=== PATIENT | female | born 1970 | race Caucasian/White ===

== ENCOUNTER 2016-02-28 11:22 | Emergency (ER) | payer MEDICAID ==
--- NOTE | 2016-02-28 11:33 | ER Document Report ---
ED Medical Screen (RME) - General Stated Complaint: LEFT SIDE PAIN Time seen by provider: 11:31 Mode of Arrival: Ambulatory Information source: Patient Notes: 45-year-old female with bilateral heavily laden kidneys with stones has bilateral drainage tubes for 90 days that were placed at [facility]. She has increased pain with leakage in the left tube. No fever or chills. No nausea or vomiting.. She can't stand the pain anymore and she also states that she needs her drainage bags replaced. TRAVEL OUTSIDE OF THE [place] IN LAST 30 DAYS: No - Related Data Allergies/Adverse Reactions: prochlorperazine edisylate [From Compazine] Allergy (Verified 02/23/16 17:42) prochlorperazine maleate [From Compazine] Allergy (Verified 02/23/16 17:42) tramadol Allergy (Verified 02/23/16 17:42) Past Medical History Pulmonary Medical History: Reports: Hx Asthma Neurological Medical History: Reports: Hx Migraine Endocrine Medical History: Reports: Hx Hypothyroidism Renal/ Medical History: Reports: Hx Kidney Stones GI Medical History: Reports: Hx Hepatitis - Hep C Musculoskeltal Medical History: Reports Hx Fibromyalgia Psychiatric Medical History: Reports: Hx Anxiety, Hx Attention Deficit Hyperactivity Disorder, Hx Bipolar Disorder Infectious Medical History: Reports: Hx Hepatitis - Hep C Past Surgical History: Reports: Hx Kidney (Renal Surgery) - stones, Hx Thyroid Surgery - partial thyroidectomy - Immunizations Hx Diphtheria, Pertussis, Tetanus Vaccination: Yes
[2016-02-28 12:34] LABS: AMORPHOUS SEDIMENT,URINE TRACE /HPF; APPEARANCE,URINE CLOUDY; BILIRUBIN,URINE NEGATIVE (NEGATIVE); GLUCOSE, URINE NEGATIVE (NEGATIVE); KETONES,URINE NEGATIVE (NEGATIVE); LEUKOCYTE ESTERASE,URINE LARGE (NEGATIVE); NITRITE,URINE NEGATIVE (NEGATIVE); PROTEIN,URINE 30 mg/dL (NEGATIVE); URINE SPECIFIC GRAVITY 1.006; UROBILINOGEN,URINE NEGATIVE mg/dL (<2.0)
[2016-02-28 13:31] LABS: ABSOLUTE BASOPHILS # (AUTO) 0.1 10^3/uL (0.0-0.2); ABSOLUTE EOSINOPHILS # (AUTO) 0.2 10^3/uL (0.0-0.6); ABSOLUTE LYMPHOCYTES (AUTO) 2.5 10^3/uL (0.5-4.7); ABSOLUTE MONOCYTES (AUTO) 0.4 10^3/uL (0.1-1.4); BASOPHILS % (AUTO) 0.8 % (0-2); EOSINOPHILS % (AUTO) 2.6 % (0-6); HEMATOCRIT 41.1 % (36.0-47.0); HEMOGLOBIN 14.1 g/dL (12.0-15.5); HGB HCT DIFFERENCE 1.2; LYMPHOCYTES % (AUTO) 27.4 % (13-45); MEAN CORPUSCULAR HEMOGLOBIN 29.6 pg (27.0-33.4); MEAN CORPUSCULAR HGB CONC 34.3 g/dL (32.0-36.0); MEAN CORPUSCULAR VOLUME 86 fl (80-97); MONOCYTES % (AUTO) 4.1 % (3-13); RED BLOOD COUNT 4.76 10^6/uL (3.72-5.28); RED CELL DISTRIBUTION WIDTH 14.5 % (11.5-14.0); SEGMENTED NEUTROPHILS % (AUTO) 65.1 % (42-78); WHITE BLOOD COUNT 9.3 10^3/uL (4.0-10.5)
--- NOTE | 2016-02-28 13:35 | ER Document Report ---
ED General - General Chief Complaint: Flank Pain Stated Complaint: LEFT SIDE PAIN Time seen by provider: 13:34 Mode of Arrival: Ambulatory Notes: This is a 45-year-old female that presents today with back pain at the insertion site of the urostomy tubes. She denies any flank pain nausea vomiting fever or chills. She states that Dr. Engle in [place] placed the tubes and stents approximately 90 days ago. She had an appointment to remove the tubes on February 17, however she missed her appointment. She is in the process of rescheduling. She states that she has 18 stones in the left ureter and 2 stones in the right. She also states that she's been having dysuria since placement of the tubes. She was placed on Bactrim month ago, however she states that she has not been taking it since lab called her and stated that her infection was resistant to Bactrim. TRAVEL OUTSIDE OF THE [place] IN LAST 30 DAYS: No - Related Data Allergies/Adverse Reactions: prochlorperazine edisylate [From Compazine] Allergy (Severe, Verified 02/28/16 11:47) Swelling of Throat acetaminophen [From Vicodin] Allergy (Verified 02/28/16 11:46) hydrocodone [From Vicodin] Allergy (Verified 02/28/16 11:46) ketorolac [From Toradol] Allergy (Verified 02/28/16 15:49) prochlorperazine maleate [From Compazine] Allergy (Verified 02/23/16 17:42) tramadol Allergy (Verified 02/23/16 17:42) Past Medical History - General Information source: Patient - Social History Smoking Status: Current Every Day Smoker Family History: Reviewed & Not Pertinent Pulmonary Medical History: Reports: Hx Asthma Neurological Medical History: Reports: Hx Migraine Endocrine Medical History: Reports: Hx Hypothyroidism Renal/ Medical History: Reports: Hx Kidney Stones GI Medical History: Reports: Hx Hepatitis - Hep C Musculoskeltal Medical History: Reports Hx Fibromyalgia Psychiatric Medical History: Reports: Hx Anxiety, Hx Attention Deficit Hyperactivity Disorder, Hx Bipolar Disorder Infectious Medical History: Reports: Hx Hepatitis - Hep C Past Surgical History: Reports: Hx Kidney (Renal Surgery) - stones, Hx Thyroid Surgery - partial thyroidectomy - Immunizations Hx Diphtheria, Pertussis, Tetanus Vaccination: Yes Review of Systems - Review of Systems Constitutional: denies: Fever EENT: denies: Blurred vision Cardiovascular: denies: Chest pain Respiratory: denies: Cough, Short of breath Gastrointestinal: denies: Abdominal pain Genitourinary: See HPI Female Genitourinary: See HPI Musculoskeletal: Back pain - pain only at the site of the drainage tubes. Skin: No symptoms reported Physical Exam - General General appearance: Appears well - HEENT Head: Normocephalic Eyes: Normal Conjunctiva: Normal - Respiratory Respiratory status: No respiratory distress. No: Retractions Breath sounds: Normal. No: Rales, Rhonchi, Stridor, Wheezing - Cardiovascular Rhythm: Regular Heart sounds: Normal auscultation - Abdominal Inspection: Normal Distension: No distension Bowel sounds: Normal - Back Back: Normal. No: CVA tenderness - Extremities General upper extremity: Normal inspection General lower extremity: Normal inspection - Neurological Orientation: AAOx4 - Psychological Associated symptoms: Normal affect - Skin Skin Temperature: Warm Skin Moisture: Dry Skin Color: Normal Course - Re-evaluation Re-evalutation: 02/28/16 13:42 Patient states that she woke up this morning at 0930 and noticed that her back was wet. She believes that her tubes were leaking. I examined the urostomy tubes and I did not find any leakage or blockage. Suture site does not appear infected. Skin is normal color. Urinary bladder bag has yellow urine. No gross blood noted. - Laboratory Result Diagrams: 02/28/16 13:00 02/28/16 13:00 Laboratory results interpreted by me: 02/28/16 02/28/16 02/28/16 12:05 13:00 13:00 RDW 14.5 H AST 13 L Urine Protein 30 H Urine Blood MODERATE H Ur Leukocyte Esterase LARGE H Discharge - Discharge Clinical Impression: UTI (urinary tract infection) Qualifiers: Urinary tract infection type: site unspecified Hematuria presence: without hematuria Qualified Code(s): N39.0 - Urinary tract infection, site not specified Condition: Stable Disposition: HOME, SELF-CARE Additional Instructions: Return to the emergency department if symptoms worsen. Follow-up with primary care physician. Prescriptions: Amox Tr/Potassium Clavulanate [Augmentin 500-125 Tablet] 1 each PO BID #14 tablet Oxycodone HCl/Acetaminophen [Percocet 5-325 mg Tablet] 1 - 2 tab PO Q4H PRN #6 tablet PRN Reason: Referrals: HAROON CHERRY MD [Primary Care Provider] - Follow up as needed
[2016-02-28] MEDS ORDERED: KETOROLAC TROMETHAMINE 60 MG/2 ML SDV IM ONE (13:46)
[2016-02-28 13:47] LABS: ALANINE AMINOTRANSFERASE 22 U/L (9-52); ALKALINE PHOSPHATASE 85 U/L (38-126); ANION GAP 11 (5-19); ASPARTATE AMINO TRANSFERASE 13 U/L (14-36); BILIRUBIN,TOTAL 0.3 mg/dL (0.2-1.3); BLOOD UREA NITROGEN 11 mg/dL (7-20); CALCIUM 9.5 mg/dL (8.4-10.2); CARBON DIOXIDE 25 mmol/L (22-30); CHLORIDE 105 mmol/L (98-107); CREATININE RESULT 0.52 mg/dL (0.52-1.25); GLUCOSE 110 mg/dL (75-110); POTASSIUM 4.1 mmol/L (3.6-5.0); SODIUM 140.7 mmol/L (137-145)
[2016-02-28 22:08] VITALS: BP 126/71
== END 2016-02-28 17:26 | disposition home or self-care (01) ==
LOC: ER 11:22
DX: N39.0 Urinary tract infection, site not specified (principal); R10.9 Unspecified abdominal pain; R05 Cough; Z93.6 Other artificial openings of urinary tract status; R06.02 Shortness of breath; Z88.6 Allergy status to analgesic agent; J45.909 Unspecified asthma, uncomplicated; Z87.442 Personal history of urinary calculi; Z86.19 Personal history of other infectious and parasitic diseases
CPT/HCPCS: 36415; 76770; 80053; 81001; 85025; 87086; 87088; 87186; 99284

== ENCOUNTER 2016-03-08 10:51 | Emergency (ER) | payer MEDICAID ==
--- NOTE | 2016-03-08 11:12 | ER Document Report ---
ED Medical Screen (RME) - General Stated Complaint: NEPHROSTOMY TUBE COMPLICATION Time seen by provider: 11:11 Mode of Arrival: Ambulatory Information source: Patient Notes: 45-year-old female with nephrostomy tubes placed by a drier transfer car operator at [facility] in [place]. She was seen in the emergency department because she had a sensation that the tubes were leaking bile upon physical exam they said it was not leaking but she is now soaking through Edi for a week. TRAVEL OUTSIDE OF THE [place] IN LAST 30 DAYS: No - Related Data Allergies/Adverse Reactions: prochlorperazine edisylate [From Compazine] Allergy (Severe, Verified 03/08/16 11:09) Swelling of Throat acetaminophen [From Vicodin] Allergy (Verified 03/08/16 11:09) hydrocodone [From Vicodin] Allergy (Verified 03/08/16 11:09) ketorolac [From Toradol] Allergy (Verified 03/08/16 11:09) prochlorperazine maleate [From Compazine] Allergy (Verified 03/08/16 11:09) tramadol Allergy (Verified 03/08/16 11:09) Past Medical History Pulmonary Medical History: Reports: Hx Asthma Neurological Medical History: Reports: Hx Migraine Endocrine Medical History: Reports: Hx Hypothyroidism Renal/ Medical History: Reports: Hx Kidney Stones GI Medical History: Reports: Hx Hepatitis - Hep C Musculoskeltal Medical History: Reports Hx Fibromyalgia Psychiatric Medical History: Reports: Hx Anxiety, Hx Attention Deficit Hyperactivity Disorder, Hx Bipolar Disorder Infectious Medical History: Reports: Hx Hepatitis - Hep C Past Surgical History: Reports: Hx Kidney (Renal Surgery) - stones, Hx Thyroid Surgery - partial thyroidectomy - Immunizations Hx Diphtheria, Pertussis, Tetanus Vaccination: Yes Physical Exam - Vital signs Vitals: Temp Pulse Resp BP Pulse Ox 97.4 F 90 18 118/64 99 03/08/16 10:58 03/08/16 10:58 03/08/16 10:58 03/08/16 10:58 03/08/16 10:58 Course - Vital Signs Vital signs: Temp Pulse Resp BP Pulse Ox 97.4 F 90 18 118/64 99 03/08/16 10:58 03/08/16 10:58 03/08/16 10:58 03/08/16 10:58 03/08/16 10:58
--- NOTE | 2016-03-08 11:55 | ER Document Report ---
ED GI/ <SYED NEGRON - Last Filed: 03/08/16 12:50> - General Mode of Arrival: Ambulatory Information source: Patient TRAVEL OUTSIDE OF THE [place] IN LAST 30 DAYS: No <SOPHIATERESA - Last Filed: 03/08/16 14:49> - General Chief Complaint: Other Stated Complaint: NEPHROSTOMY TUBE COMPLICATION Notes: Patient is a 45-year-old female that presents to the emergency department today with complaints of a leaking nephrostomy tube. Patient has 2 nephrostomy tubes in her left kidney. Patient was seen 1 week ago for similar complaint. At that time the patient stated that on 02/18/2016 she was scheduled to have his nephrostomy tubes taken out changed however she missed her appointment. Patient has not followed up since then. Patient states she noticed "leaking" again one week ago. Patient denies any fevers. (TERESA CORTES) - Related Data Allergies/Adverse Reactions: prochlorperazine edisylate [From Compazine] Allergy (Severe, Verified 03/08/16 11:09) Swelling of Throat acetaminophen [From Vicodin] Allergy (Verified 03/08/16 11:09) hydrocodone [From Vicodin] Allergy (Verified 03/08/16 11:09) ketorolac [From Toradol] Allergy (Verified 03/08/16 11:09) prochlorperazine maleate [From Compazine] Allergy (Verified 03/08/16 11:09) tramadol Allergy (Verified 03/08/16 11:09) Past Medical History - General Information source: Patient - Social History Smoking Status: Current Every Day Smoker Cigarette use (# per day): Yes Frequency of alcohol use: None Drug Abuse: None Lives with: Family Family History: Reviewed & Not Pertinent Patient has suicidal ideation: No Patient has homicidal ideation: No Pulmonary Medical History: Reports: Hx Asthma Neurological Medical History: Reports: Hx Migraine Endocrine Medical History: Reports: Hx Hypothyroidism Renal/ Medical History: Reports: Hx Kidney Stones GI Medical History: Reports: Hx Hepatitis - Hep C Musculoskeltal Medical History: Reports Hx Fibromyalgia Psychiatric Medical History: Reports: Hx Anxiety, Hx Attention Deficit Hyperactivity Disorder, Hx Bipolar Disorder Infectious Medical History: Reports: Hx Hepatitis - Hep C Past Surgical History: Reports: Hx Kidney (Renal Surgery) - stones, Hx Thyroid Surgery - partial thyroidectomy - Immunizations Hx Diphtheria, Pertussis, Tetanus Vaccination: Yes <TERESA CORTES - Last Filed: 03/08/16 14:49> Review of Systems - Review of Systems Constitutional: denies: Fever EENT: No symptoms reported Cardiovascular: No symptoms reported Respiratory: No symptoms reported Gastrointestinal: No symptoms reported Genitourinary: See HPI, Other - Nephrostomy tube leaking Female Genitourinary: No symptoms reported Musculoskeletal: No symptoms reported Skin: No symptoms reported Hematologic/Lymphatic: No symptoms reported Neurological/Psychological: No symptoms reported -: Yes All other systems reviewed and negative <TERESA CORTES - Last Filed: 03/08/16 14:49> Physical Exam - Back Back: Other - Left flank has 2 nephrostomy tubes. The upper to has some of the drainage ports projected beyond the skin and are draining urine.. No: Normal <SYED NEGRON - Last Filed: 03/08/16 12:50> - General General appearance: Appears well, Alert In distress: None - HEENT Head: Normocephalic, Atraumatic Eyes: Normal Extraocular movements intact: Yes - Respiratory Respiratory status: No respiratory distress - Cardiovascular Rhythm: Regular Heart sounds: Normal auscultation Murmur: No - Abdominal Inspection: Normal Distension: No distension Tenderness: Nontender - Back Back: Other - Extremities General upper extremity: Normal inspection, Nontender. No: Edema General lower extremity: Normal inspection, Nontender. No: Edema - Neurological Neuro grossly intact: Yes Cognition: Normal Speech: Normal - Psychological Associated symptoms: Normal affect, Normal mood - Skin Skin Temperature: Warm Skin Moisture: Dry Skin Color: Normal <TERESA CORTES - Last Filed: 03/08/16 14:49> - Vital signs Vitals: Temp Pulse Resp BP Pulse Ox 97.4 F 90 18 118/64 99 03/08/16 10:58 03/08/16 10:58 03/08/16 10:58 03/08/16 10:58 03/08/16 10:58 (SYED NEGRON) (TERESA CORTES) Course - Consults Dr. Villasenor Time consulted: 12:05 Consulted provider: other - Dr. Villasenor is the urology director of front office for Dr. Engle in [place], [place]. He recommends I cut the nephrostomy tube and remove it, as the 2 intrarenal drainage ports have already come out beyond the skin. <SYED NEGRON - Last Filed: 03/08/16 12:50> <TERESA CORTES - Last Filed: 03/08/16 14:49> - Re-evaluation Re-evalutation: 03/08/16 12:51 Proceedure: The sutures holding the tube work cut and removed. The area was cleaned and prepped with alcohol wipe. The nephrostomy tube was cut. The thread loop was pulled out, then the nephrostomy tube was removed. There was a large amount of concretions on the end of the tube. There was no immediate urine drainage from the site, a sterile bandage was placed. (SYED NEGRON) - Vital Signs Vital signs: Temp Pulse Resp BP Pulse Ox 97.8 F 77 20 119/40 L 98 03/08/16 13:02 03/08/16 13:02 03/08/16 13:02 03/08/16 13:02 03/08/16 13:02 (SYED NEGRON) (TERESA CORTES) Scribe Documentation <SYED NEGRON - Last Filed: 03/08/16 12:50> - Scribe acting as scribe for :: Rudy <TERESA CORTES - Last Filed: 03/08/16 14:49> - Scribe Written by Scribe:: ARA MOTA 03/08/16 [id number] (TERESA CORTES)
[2016-03-08 13:03] VITALS: BP 119/40
== END 2016-03-08 13:02 | disposition home or self-care (01) ==
LOC: ER 10:51
DX: N99.528 Other complication of incontinent external stoma of urinary tract (principal); F17.210 Nicotine dependence, cigarettes, uncomplicated; J45.909 Unspecified asthma, uncomplicated; Z88.1 Allergy status to other antibiotic agents; Z88.5 Allergy status to narcotic agent; Z88.8 Allergy status to other drugs, medicaments and biological substances; Z87.442 Personal history of urinary calculi
CPT/HCPCS: 99283

== ENCOUNTER 2016-03-17 10:45 | Emergency (ER) | payer MEDICAID ==
--- NOTE | 2016-03-17 10:56 | ER Document Report ---
ED Medical Screen (RME) - General Stated Complaint: LEFT FLANK PAIN Time seen by provider: 10:54 Mode of Arrival: Ambulatory Information source: Patient Notes: 45-year-old female presents to ED for left flank pain with a history of kidney stones. She has asked dental stents at this time. TRAVEL OUTSIDE OF THE [place] IN LAST 30 DAYS: No - HPI Onset: Yesterday Onset/Duration: Gradual Quality of pain: Achy, Sharp, Throbbing Severity: Severe Pain Level: 5 Associated Symptoms: Nausea. denies: Vomiting Exacerbated by: Other Relieved by: Denies Similar symptoms previously: Yes Recently seen / treated by doctor: Yes - Related Data Smoking: Less than 1 pack/day Frequency of alcohol use: None Drug Abuse: None Allergies/Adverse Reactions: prochlorperazine edisylate [From Compazine] Allergy (Severe, Verified 03/08/16 11:09) Swelling of Throat acetaminophen [From Vicodin] Allergy (Verified 03/08/16 11:09) hydrocodone [From Vicodin] Allergy (Verified 03/08/16 11:09) ketorolac [From Toradol] Allergy (Verified 03/08/16 11:09) prochlorperazine maleate [From Compazine] Allergy (Verified 03/08/16 11:09) tramadol Allergy (Verified 03/08/16 11:09) Past Medical History Pulmonary Medical History: Reports: Hx Asthma Neurological Medical History: Reports: Hx Migraine Endocrine Medical History: Reports: Hx Hypothyroidism Renal/ Medical History: Reports: Hx Kidney Stones GI Medical History: Reports: Hx Hepatitis - Hep C Musculoskeltal Medical History: Reports Hx Fibromyalgia Psychiatric Medical History: Reports: Hx Anxiety, Hx Attention Deficit Hyperactivity Disorder, Hx Bipolar Disorder Infectious Medical History: Reports: Hx Hepatitis - Hep C Past Surgical History: Reports: Hx Kidney (Renal Surgery) - stones, Hx Thyroid Surgery - partial thyroidectomy - Immunizations Hx Diphtheria, Pertussis, Tetanus Vaccination: Yes Physical Exam - Vital signs Vitals: Temp Pulse Resp BP Pulse Ox 98.4 F 88 16 106/61 99 03/17/16 10:52 03/17/16 10:52 03/17/16 10:52 03/17/16 10:52 03/17/16 10:52 Course - Vital Signs Vital signs: Temp Pulse Resp BP Pulse Ox 98.4 F 88 16 106/61 99 03/17/16 10:52 03/17/16 10:52 03/17/16 10:52 03/17/16 10:52 03/17/16 10:52
[2016-03-17 11:33] LABS: APPEARANCE,URINE SLIGHTLY-CLOUDY; BILIRUBIN,URINE NEGATIVE (NEGATIVE); GLUCOSE, URINE NEGATIVE (NEGATIVE); KETONES,URINE NEGATIVE (NEGATIVE); LEUKOCYTE ESTERASE,URINE LARGE (NEGATIVE); NITRITE,URINE NEGATIVE (NEGATIVE); PROTEIN,URINE NEGATIVE (NEGATIVE); URINE SPECIFIC GRAVITY 1.002; UROBILINOGEN,URINE NEGATIVE mg/dL (<2.0)
[2016-03-17] MEDS ORDERED: OXYCODONE-ACETAMINOPHEN 5-325 MG TABLET PO ONE (11:52)
--- NOTE | 2016-03-17 11:57 | ER Document Report ---
ED GI/ - General Chief Complaint: Flank Pain Stated Complaint: LEFT FLANK PAIN Mode of Arrival: Ambulatory Notes: She is a 45-year-old female presents emergency Department complaining of left flank pain. Patient has a known history of renal stones, states she has 18 in her left kidney that has required nephrostomy tube placement and she has multiple in her right. She was recently seen in our emergency department for nephrostomy tube issues and one was removed. Her remaining 1 has been functioning without any problems. She comes in for pain management. Past medical history significant for kidney stones otherwise healthy 45-year- old female. Urologist is Dr. Nataly Smith in [place] she's been in contact with since her last visit with us for evaluation and possible repeat surgery. Otherwise she is admitting to urinary urgency but denies pyuria, hematuria, frequency. TRAVEL OUTSIDE OF THE [place] IN LAST 30 DAYS: No - Related Data Allergies/Adverse Reactions: prochlorperazine edisylate [From Compazine] Allergy (Severe, Verified 03/17/16 10:54) Swelling of Throat acetaminophen [From Vicodin] Allergy (Verified 03/17/16 10:54) hydrocodone [From Vicodin] Allergy (Verified 03/17/16 10:54) ketorolac [From Toradol] Allergy (Verified 03/17/16 10:54) prochlorperazine maleate [From Compazine] Allergy (Verified 03/17/16 10:54) tramadol Allergy (Verified 03/17/16 10:54) Past Medical History - General Information source: Patient - Social History Smoking Status: Current Every Day Smoker Chew tobacco use (# tins/day): Yes Smoking Education Provided: Yes - Smoking cessation education-4 minutes Frequency of alcohol use: None Drug Abuse: None Family History: Reviewed & Not Pertinent Patient has suicidal ideation: No Patient has homicidal ideation: No Pulmonary Medical History: Reports: Hx Asthma Neurological Medical History: Reports: Hx Migraine Endocrine Medical History: Reports: Hx Hypothyroidism Renal/ Medical History: Reports: Hx Kidney Stones. Denies: Hx Peritoneal Dialysis GI Medical History: Reports: Hx Hepatitis - Hep C Musculoskeltal Medical History: Reports Hx Fibromyalgia Psychiatric Medical History: Reports: Hx Anxiety, Hx Attention Deficit Hyperactivity Disorder, Hx Bipolar Disorder Infectious Medical History: Reports: Hx Hepatitis - Hep C Past Surgical History: Reports: Hx Kidney (Renal Surgery) - stones, Hx Thyroid Surgery - partial thyroidectomy - Immunizations Hx Diphtheria, Pertussis, Tetanus Vaccination: Yes Review of Systems - Review of Systems Constitutional: No symptoms reported EENT: No symptoms reported Cardiovascular: No symptoms reported Respiratory: No symptoms reported Gastrointestinal: No symptoms reported Genitourinary: See HPI Female Genitourinary: No symptoms reported Musculoskeletal: See HPI Skin: No symptoms reported Hematologic/Lymphatic: No symptoms reported Neurological/Psychological: No symptoms reported Physical Exam - Vital signs Vitals: Temp Pulse Resp BP Pulse Ox 98.4 F 88 16 106/61 99 03/17/16 10:52 03/17/16 10:52 03/17/16 10:52 03/17/16 10:52 03/17/16 10:52 - Notes Notes: PHYSICAL EXAM GENERAL: Alert, interacts well. HEAD: Normocephalic, atraumatic. EYES: Pupils equal, round, and reactive to light. Extraocular movements intact. ENT: Oral mucosa moist, tongue midline. NECK: Full range of motion. Supple. Trachea midline. LUNGS: Clear to auscultation bilaterally, no wheezes, rales, or rhonchi. No respiratory distress. HEART: Regular rate and rhythm. No murmurs, gallops, or rubs. ABDOMEN: Soft, nondistended, nontender. No guarding, rebound, or rigidity.. Bowel sounds present in all 4 quadrants. BACK: previous nephrosotmy site is healed well without tenderness. no evidence of inflammation or erythema. Inferior to that is her existing nephrostomy tube that is opened air without any drainage or discharge. Her leg bag has clear yellow urine with no evidence of clouding or blood. EXTREMITIES: Moves all 4 extremities spontaneously. No edema, radial and dorsalis pedis pulses 2/4 bilaterally. No cyanosis. NEUROLOGICAL: Alert and oriented x3. Normal speech. PSYCH: Normal affect, normal mood. SKIN: Warm, dry, normal turgor. No rashes or lesions noted. Course - Re-evaluation Re-evalutation: 03/17/16 13:53 Patient is a 45-year-old female presents emergency Department complaining of left flank pain from her kidney stones. Patient is yet to follow with urology, she states she is waiting for a phone call from their office. 03/17/16 14:58 No evidence of acute renal failure. Patient be discharged home with pain medication and encouraged to follow-up with urologist as soon as possible for her stones. - Vital Signs Vital signs: Temp Pulse Resp BP Pulse Ox 98.4 F 88 16 106/61 99 03/17/16 10:52 03/17/16 10:52 03/17/16 10:52 03/17/16 10:52 03/17/16 10:52 - Laboratory Result Diagrams: 03/17/16 13:20 03/17/16 13:20 Laboratory results interpreted by me: 03/17/16 03/17/16 11:22 13:20 WBC 11.0 H RDW 14.4 H Urine Blood MODERATE H Ur Leukocyte Esterase LARGE H Discharge - Discharge Clinical Impression: Kidney stones, Encounter for smoking cessation counseling Condition: Good Disposition: HOME, SELF-CARE Additional Instructions: KIDNEY STONE: You are passing or have passed a kidney stone. These stones are usually due to increased calcium or uric acid concentrations in your urine. Stones within the kidney itself are not painful. The pain occurs as the stone leaves the kidney to pass down the long tube, called the ureter, leading to the bladder. If the stone is small, it will usually pass by itself. Most patients can pass the stone at home. You will usually receive medications for pain, nausea or vomiting, and sometimes a medication to assist in passing the kidney stone. However, if the pain is very severe or if vomiting prevents you from taking oral pain medications, you may need to return for further treatment. Drink three or four quarts of fluids per day. You will be given pain medication (if needed) and urine strainers. Strain all your urine to see if the stone passes. If your doctor has asked you to bring the stone in for analysis, return with the stone once it has passed. Return if pain or vomiting become severe, if you develop a high fever, if you are unable to pass your urine, or if other unusual symptoms occur. PAIN MEDICATION INJECTION: You have received an injection of a pain medication. You should experience significant pain relief within 45 minutes. This drug is a narcotic - - it will impair your judgement, slow your reaction time and make you sleepy ( as well as relieve your pain). Narcotics also can cause nausea. You should not drive, work with machinery, or perform any task requiring mental alertness until all effects of the medication are gone -- six to eight hours. Do not take any alcohol, or sedatives, and do not take any other medication without checking with your physician. ANTINAUSEA MEDICATION: You have been given a medication to suppress nausea and vomiting. This type of medication can be given as a shot, pill, or suppository. It will usually last for many hours. Pills and shots usually last six to eight hours, suppositories last about 12 hours. For the typical illness, only one or two doses of the medication may be necessary. Mild lightheadedness may occur. This type of medicine can cause drowsiness. Do not drive or operate dangerous machinery while under its influence. Do not mix with alcohol. See your doctor at once if you have muscle spasms or tightness, or uncontrollable motions (particularly of the neck, mouth, or jaw). Persistent vomiting or severe lightheadedness should also be evaluated by the physician. ORAL NARCOTIC MEDICATION: You have been given a prescription for pain control. This medication is a narcotic. It's best taken with food, as nausea can result if taken on an empty stomach. Don't operate machinery or drive within six hours of taking this medication. Do not combine this medicine with alcohol, or with any medication which can cause sedation (such as cold tablets or sleeping pills) unless you get permission from the physician. Narcotics tend to cause constipation. If possible, drink plenty of fluids and eat a diet high in fiber and fruits. Please be aware that prescription narcotics also have the potential for abuse. People become addicted to these medications because of the general sense of wellbeing that they induce. This feeling along with a significant reduction in tension, anxiety, and aggression provides a stimulating seductive quality to these drugs. Once your pain is under control, we encourage you to discard your unused narcotics. FOLLOW-UP CARE: If you have been referred to a physician for follow-up care, call the physician s office for an appointment as you were instructed or within the next two days. If you experience worsening or a significant change in your symptoms, notify the physician immediately or return to the Emergency Department at any time for re-evaluation. Prescriptions: Oxycodone HCl/Acetaminophen [Percocet 5-325 mg Tablet] 1 - 2 tab PO Q4H PRN #25 tablet PRN Reason: Forms: Smoking Cessation Education Referrals: NATALY SMITH [ACTIVE STAFF] - Follow up in 1 week (Please call to schedule an appointment)
[2016-03-17] MEDS ORDERED: MORPHINE SULFATE 10 MG/ML INJ IM ONE (13:47)
[2016-03-17 13:54] LABS: HEMATOCRIT 44.5 % (36.0-47.0); HEMOGLOBIN 14.5 g/dL (12.0-15.5); MEAN CORPUSCULAR HEMOGLOBIN 28.9 pg (27.0-33.4); MEAN CORPUSCULAR HGB CONC 32.6 g/dL (32.0-36.0); MEAN CORPUSCULAR VOLUME 89 fl (80-97); RED BLOOD COUNT 5.02 10^6/uL (3.72-5.28); RED CELL DISTRIBUTION WIDTH 14.4 % (11.5-14.0)
[2016-03-17 14:09] LABS: ALBUMIN 4.4 g/dL (3.5-5.0); ANION GAP 12 (5-19); BLOOD UREA NITROGEN 10 mg/dL (7-20); CALCIUM 9.6 mg/dL (8.4-10.2); CARBON DIOXIDE 29 mmol/L (22-30); CHLORIDE 103 mmol/L (98-107); CREATININE RESULT 0.56 mg/dL (0.52-1.25); GLUCOSE 91 mg/dL (75-110); PHOSPHORUS 3.5 mg/dL (2.5-4.5); POTASSIUM 4.2 mmol/L (3.6-5.0); SODIUM 144.1 mmol/L (137-145)
[2016-03-17 14:39] LABS: ANISOCYTOSIS SLIGHT; BASOPHILS % (MANUAL) 0 % (0-2); EOSINOPHILS % (MANUAL) 1 % (0-6); LYMPHOCYTES % (MANUAL) 37 % (13-45); PLATELET CLUMPS PRESENT; POLYCHROMASIA SLIGHT; TOTAL CELLS COUNTED 100; TOXIC GRANULATION SLIGHT
[2016-03-17 15:29] VITALS: BP 111/78
== END 2016-03-17 15:20 | disposition home or self-care (01) ==
LOC: ER 10:45
DX: N20.0 Calculus of kidney (principal); R10.9 Unspecified abdominal pain; F17.210 Nicotine dependence, cigarettes, uncomplicated
CPT/HCPCS: 99284; 96372; 80069; 36415; 85025; 81025; 81001; J2270

== ENCOUNTER 2016-04-01 19:37 | Inpatient (IN) | payer MEDICAID ==
[2016-04-01] MEDS ORDERED: ONDANSETRON 4 MG TAB.RAPDIS PO ONE (19:53)
[2016-04-01] MEDS ORDERED: OXYCODONE-ACETAMINOPHEN 5-325 MG TABLET PO ONE (19:53)
--- NOTE | 2016-04-01 19:55 | ER Document Report ---
ED Medical Screen (RME) - General Stated Complaint: FLANK PAIN Notes: Since a 45-year-old female who is known to have kidney stones on the left side she states she is about 18 in the left kidney she also has kidney stones on her right kidney about 2. Patient is due to follow up with her urologist surgery sometime soon. I have greeted and performed a rapid initial assessment of this patient. A comprehensive ED assessment and evaluation of the patient, analysis of test results and completion of the medical decision making process will be conducted by additional ED providers. TRAVEL OUTSIDE OF THE [place] IN LAST 30 DAYS: No - Related Data Allergies/Adverse Reactions: prochlorperazine edisylate [From Compazine] Allergy (Severe, Verified 03/17/16 10:54) Swelling of Throat acetaminophen [From Vicodin] Allergy (Verified 03/17/16 10:54) hydrocodone [From Vicodin] Allergy (Verified 03/17/16 10:54) ketorolac [From Toradol] Allergy (Verified 03/17/16 10:54) prochlorperazine maleate [From Compazine] Allergy (Verified 03/17/16 10:54) tramadol Allergy (Verified 03/17/16 10:54) Past Medical History Pulmonary Medical History: Reports: Hx Asthma Neurological Medical History: Reports: Hx Migraine Endocrine Medical History: Reports: Hx Hypothyroidism Renal/ Medical History: Reports: Hx Kidney Stones. Denies: Hx Peritoneal Dialysis GI Medical History: Reports: Hx Hepatitis - Hep C Musculoskeltal Medical History: Reports Hx Fibromyalgia Psychiatric Medical History: Reports: Hx Anxiety, Hx Attention Deficit Hyperactivity Disorder, Hx Bipolar Disorder Infectious Medical History: Reports: Hx Hepatitis - Hep C Past Surgical History: Reports: Hx Kidney (Renal Surgery) - stones, Hx Thyroid Surgery - partial thyroidectomy - Immunizations Hx Diphtheria, Pertussis, Tetanus Vaccination: Yes
[2016-04-01 20:36] LABS: ABSOLUTE BASOPHILS # (AUTO) 0.1 10^3/uL (0.0-0.2); ABSOLUTE LYMPHOCYTES (AUTO) 1.8 10^3/uL (0.5-4.7); ABSOLUTE MONOCYTES (AUTO) 1.1 10^3/uL (0.1-1.4); ABSOLUTE NEUT (AUTO) 16.5 10^3/uL (1.7-8.2); BASOPHILS % (AUTO) 0.3 % (0-2); EOSINOPHILS % (AUTO) 0.1 % (0-6); HEMATOCRIT 41.1 % (36.0-47.0); HEMOGLOBIN 13.8 g/dL (12.0-15.5); HGB HCT DIFFERENCE 0.3; LYMPHOCYTES % (AUTO) 9.3 % (13-45); MEAN CORPUSCULAR HEMOGLOBIN 28.9 pg (27.0-33.4); MEAN CORPUSCULAR HGB CONC 33.7 g/dL (32.0-36.0); MEAN CORPUSCULAR VOLUME 86 fl (80-97); MONOCYTES % (AUTO) 5.6 % (3-13); RED BLOOD COUNT 4.78 10^6/uL (3.72-5.28); RED CELL DISTRIBUTION WIDTH 13.4 % (11.5-14.0); SEGMENTED NEUTROPHILS % (AUTO) 84.7 % (42-78); WHITE BLOOD COUNT 19.5 10^3/uL (4.0-10.5)
[2016-04-01 21:03] LABS: ALANINE AMINOTRANSFERASE 9 U/L (9-52); ALBUMIN 4.5 g/dL (3.5-5.0); ALKALINE PHOSPHATASE 86 U/L (38-126); ANION GAP 12 (5-19); ASPARTATE AMINO TRANSFERASE 21 U/L (14-36); BILIRUBIN,TOTAL 0.9 mg/dL (0.2-1.3); BLOOD UREA NITROGEN 10 mg/dL (7-20); CALCIUM 9.8 mg/dL (8.4-10.2); CARBON DIOXIDE 25 mmol/L (22-30); CHLORIDE 96 mmol/L (98-107); CREATININE RESULT 0.61 mg/dL (0.52-1.25); GLUCOSE 113 mg/dL (75-110); SODIUM 133.3 mmol/L (137-145); TOTAL PROTEIN 8.2 g/dL (6.3-8.2)
[2016-04-01] MEDS ORDERED: NORMAL SALINE 1000 ML 1,000 ML IV ONE (23:44)
[2016-04-01] MEDS ORDERED: HYDROMORPHONE HCL INJ/PF 2 MG/ML AMPULE IV ONE (23:53)
[2016-04-02 00:44] LABS: AMORPHOUS SEDIMENT,URINE TRACE /HPF; APPEARANCE,URINE CLOUDY; BILIRUBIN,URINE NEGATIVE (NEGATIVE); GLUCOSE, URINE NEGATIVE (NEGATIVE); KETONES,URINE NEGATIVE (NEGATIVE); LEUKOCYTE ESTERASE,URINE LARGE (NEGATIVE); NITRITE,URINE NEGATIVE (NEGATIVE); PROTEIN,URINE 100 mg/dL (NEGATIVE); URINE SPECIFIC GRAVITY 1.005; UROBILINOGEN,URINE NEGATIVE mg/dL (<2.0)
[2016-04-02] MEDS ORDERED: CEFTRIAXONE INJ 1000 MG VIAL IV ONE (00:46)
[2016-04-02] MEDS ORDERED: HYDROMORPHONE HCL INJ/PF 2 MG/ML AMPULE IM ONE ×2 (01:21→02:48)
[2016-04-02] MEDS ORDERED: CEFTRIAXONE INJ 1000 MG VIAL IM ONE (01:22)
[2016-04-02] MEDS ORDERED: LIDOCAINE 1% INJ-PF (10 MG/ML) 30 ML SDV INFIL ONE (01:22)
[2016-04-02] MEDS ORDERED: ACETAMINOPHEN 325 MG TABLET PO ONE (03:16)
[2016-04-02] MEDS ORDERED: NORMAL SALINE 1000 ML 1,000 ML IV ONE (03:27)
[2016-04-02] MEDS ORDERED: PIPERACILLIN/TAZOBACTAM 3.375 GM VIAL IV ONE (03:31)
[2016-04-02] MEDS ORDERED: PROMETHAZINE HCL 25 MG TABLET PO PRN (03:32)
--- NOTE | 2016-04-02 03:32 | ER Document Report ---
ED General - General Chief Complaint: Flank Pain Stated Complaint: FLANK PAIN Notes: Patient is a 45 of female who presents with complaints of subjective fevers at home, pain over the left kidney, and palpitations. Patient says that she feels that she's getting infection. Patient has a history of bilateral nephrostomy tubes. Patient had the nephrostomy tube on the right side removed early in February. She still has the left-sided nephrostomy tube. She's followed by Dr. Chace Engle, urologist, in [place]. She denies any cough or congestion. No other complaints at this time. TRAVEL OUTSIDE OF THE [place] IN LAST 30 DAYS: No - Related Data Allergies/Adverse Reactions: prochlorperazine edisylate [From Compazine] Allergy (Severe, Verified 03/17/16 10:54) Swelling of Throat acetaminophen [From Vicodin] Allergy (Verified 03/17/16 10:54) hydrocodone [From Vicodin] Allergy (Verified 03/17/16 10:54) ketorolac [From Toradol] Allergy (Verified 03/17/16 10:54) prochlorperazine maleate [From Compazine] Allergy (Verified 03/17/16 10:54) tramadol Allergy (Verified 03/17/16 10:54) Past Medical History - Social History Smoking Status: Never Smoker Chew tobacco use (# tins/day): No Frequency of alcohol use: None Drug Abuse: None Family History: Reviewed & Not Pertinent Patient has suicidal ideation: No Patient has homicidal ideation: No Pulmonary Medical History: Reports: Hx Asthma Neurological Medical History: Reports: Hx Migraine Endocrine Medical History: Reports: Hx Hypothyroidism Renal/ Medical History: Reports: Hx Kidney Stones. Denies: Hx Peritoneal Dialysis GI Medical History: Reports: Hx Hepatitis - Hep C Musculoskeltal Medical History: Reports Hx Fibromyalgia Psychiatric Medical History: Reports: Hx Anxiety, Hx Attention Deficit Hyperactivity Disorder, Hx Bipolar Disorder Infectious Medical History: Reports: Hx Hepatitis - Hep C Past Surgical History: Reports: Hx Kidney (Renal Surgery) - stones, Hx Thyroid Surgery - partial thyroidectomy - Immunizations Hx Diphtheria, Pertussis, Tetanus Vaccination: Yes Review of Systems - Review of Systems Notes: My Normal Review Basic REVIEW OF SYSTEMS: CONSTITUTIONAL : Subjective fevers RESPIRATORY: Denies cough, cold, or chest congestion. Denies shortness of breath, difficulty breathing, or wheezing. GASTROINTESTINAL: Denies abdominal pain. Denies nausea, vomiting, or diarrhea. Denies constipation. Last BM: GENITOURINARY: Fossa to left side. MUSCULOSKELETAL: Denies neck or back pain or joint pain or swelling. SKIN: Denies rash or skin lesions. NEUROLOGICAL: Denies altered mental status or loss of consciousness. Denies headache. Denies weakness or paralysis or loss of use of either side. Denies problems with gait or speech. Denies sensory or motor loss. ALL OTHER SYSTEMS REVIEWED AND NEGATIVE. Physical Exam - Vital signs Vitals: Resp 18 04/01/16 23:50 - Notes Notes: General Appearance: Well nourished, alert, cooperative, no acute distress, mild to moderate obvious discomfort. Vitals: reviewed, See vital signs table. Head: no swelling or tenderness to the head Eyes: PERRL, EOMI, Conjuctiva clear Mouth: No decreasd moisture Neck: Supple, no neck tenderness, No thyromegaly Lungs: No wheezing, No rales, No rhonci, No accessory muscle use, good air exchange bilaterally. Heart: Tachycardic rate, Regular rythm, No murmur, no rub Back: Nephrostomy tube insertion sites over the left lower back is normal appearing. This no redness or swelling around the area. Tube appears to be draining properly. Urine is in the bag attached to the nephrostomy tube. Abdomen: Normal BS, soft, No rigidity, No abdominal tenderness, No guarding, no rebound, no abdominal masses, no organomegaly Extremities: strength 5/5 in all extremities, good pulses in all extremities, no swelling or tenderness in the extremities, no edema. Skin: warm, dry, appropriate color, no rash Neuro: speech clear, oriented x 3, normal affect, responds appropriately to questions. Course - Vital Signs Vital signs: Temp Pulse Resp BP Pulse Ox 100.6 F H 123 H 16 110/61 96 04/02/16 05:43 04/02/16 05:43 04/02/16 05:43 04/02/16 05:43 04/02/16 05:43 - Laboratory Result Diagrams: 04/01/16 20:00 04/01/16 20:00 Laboratory results interpreted by me: 04/01/16 04/01/16 04/01/16 20:00 20:00 23:53 WBC 19.5 H Seg Neutrophils % 84.7 H Lymphocytes % 9.3 L Absolute Neutrophils 16.5 H Sodium 133.3 L Chloride 96 L Glucose 113 H Urine Protein 100 H Urine Blood SMALL H Ur Leukocyte Esterase LARGE H - Transfer of Care Notes: 04/02/16 06:59 Patient's symptoms are consistent with a infection the kidney. Suspect infection she does have white blood cells in her urine, pain in her left kidney , and fever. She does have tachycardia. She has been given Rocephin IV fluids. I did call and speak with Dr. King, urologist covering for patient' s urologist. Ultrasound showed no hydronephrosis. The nephrostomy tube is working appropriately on exam and draining well. The consult the patient's to be treated medically with antibiotics and there is no surgical intervention at this time. He recommends admission to medicine with antibiotics. I did speak with the hospitalist who agrees to admit the patient. Dictation of this chart was performed using voice recognition software; therefore, there may be some unintended grammatical errors. Discharge - Discharge Clinical Impression: Flank pain, Pyelonephritis Disposition: ADMITTED INPATIENT Admitting Provider: Hospitalist Unit Admitted: Telemetry
[2016-04-02] MEDS ORDERED: FAMOTIDINE 20 MG TABLET PO ONE (03:34)
[2016-04-02] MEDS ORDERED: ONDANSETRON HCL INJ/PF 4 MG/2 ML SDV IV PRN ×2 (03:36→08:41)
[2016-04-02] MEDS ORDERED: NORMAL SALINE 1000 ML 1,000 ML IV SCH (03:45)
[2016-04-02] MEDS ORDERED: PIPERACILLIN SODIUM/TAZOBACTAM 4.5 GM in NORMAL SALINE 100 ML IV SCH (06:00)
[2016-04-02] MEDS ORDERED: HEPARIN SOD (PORCINE) 5,000 UNIT/ML 1 ML SYRINGE ONE (06:20)
[2016-04-02] MEDS: HEPARIN SOD (PORCINE) 5,000 UNIT/ML 1 ML SYRINGE SUBCUT SCH ×3 (06:35→21:36)
--- NOTE | 2016-04-02 07:33 | PDOC H&P ---
History of Present Illness Admission Date/PCP: 04/02/16 03:36 Patient complains of: Left-sided flank pain History of Present Illness: KATE PASTOR is a 45 year old female with a past medical history of recurrent nephrolithiasis with obstruction requiring indwelling left-sided nephrostomy tube, tobacco, chronic pain with opiate dependence. In her usual state of health until approximately 24 hours prior to presentation developing subjective fever and chills and left-sided flank pain prompting to seek evaluation emergency room where she has fever tachycardia leukocytosis and pyuria, without ultrasound evidence of obstruction. Started on empiric antibiotics referred to hospice for admission. Past Medical History Pulmonary Medical History: Reports: Asthma, Bronchitis Neurological Medical History: Reports: Migraine Endocrine Medical History: Reports: Hypothyroidism GI Medical History: Reports: Hepatitis - Hep C Musculoskeltal Medical History: Reports: Fibromyalgia Psychiatric Medical History: Reports: Attention Deficit Hyperactivity Disorder, Bipolar Disorder, Tobacco Dependency Past Surgical History Past Surgical History: Reports: Other - Nephrostomy tube left side Social History Information Source: Patient Smoking Status: Current Every Day Smoker - Advance Directive Resuscitation Status: Full Code Family History Family History: COPD, Hypertension Parental Family History Reviewed: Yes Children Family History Reviewed: Yes Sibling(s) Family History Reviewed.: Yes Medication/Allergy Home Medications: Tamsulosin HCl [Flomax] 0.4 mg PO DAILY #7 cap.sr.24h 09/14/14 Tramadol HCl [Ultram] 50 mg PO Q6HP PRN #15 tablet 05/25/15 Oxycodone HCl/Acetaminophen [Percocet 5-325 mg Tablet] 1 - 2 tab PO Q4H PRN #25 tablet 03/17/16 Allergies/Adverse Reactions: prochlorperazine edisylate [From Compazine] Allergy (Severe, Verified 03/17/16 10:54) Swelling of Throat acetaminophen [From Vicodin] Allergy (Verified 03/17/16 10:54) hydrocodone [From Vicodin] Allergy (Verified 03/17/16 10:54) ketorolac [From Toradol] Allergy (Verified 03/17/16 10:54) prochlorperazine maleate [From Compazine] Allergy (Verified 03/17/16 10:54) tramadol Allergy (Verified 03/17/16 10:54) Review of Systems Constitutional: PRESENT: anorexia, chills, fatigue, fever(s), weakness Eyes: ABSENT: visual disturbances Ears: ABSENT: hearing changes Cardiovascular: ABSENT: chest pain, dyspnea on exertion, edema, orthropnea, palpitations Respiratory: ABSENT: cough, hemoptysis Gastrointestinal: ABSENT: abdominal pain, constipation, diarrhea, hematemesis, hematochezia, nausea, vomiting Genitourinary: ABSENT: dysuria, hematuria Musculoskeletal: ABSENT: joint swelling Integumentary: ABSENT: rash, wounds Neurological: ABSENT: abnormal gait, abnormal speech, confusion, dizziness, focal weakness, syncope Psychiatric: ABSENT: anxiety, depression, homidical ideation, suicidal ideation Endocrine: ABSENT: cold intolerance, heat intolerance, polydipsia, polyuria Hematologic/Lymphatic: ABSENT: easy bleeding, easy bruising Physical Exam Vital Signs: Temp Pulse Resp BP Pulse Ox 100.6 F H 123 H 16 110/61 96 04/02/16 05:43 04/02/16 05:43 04/02/16 05:43 04/02/16 05:43 04/02/16 05:43 General appearance: PRESENT: cooperative, mild distress, thin Head exam: PRESENT: atraumatic, normocephalic Eye exam: PRESENT: conjunctiva pink, EOMI, PERRLA. ABSENT: scleral icterus Ear exam: PRESENT: normal external ear exam Mouth exam: PRESENT: moist, tongue midline Neck exam: ABSENT: carotid bruit, JVD, lymphadenopathy, thyromegaly Respiratory exam: PRESENT: clear to auscultation nicole. ABSENT: rales, rhonchi, wheezes Cardiovascular exam: PRESENT: RRR. ABSENT: diastolic murmur, rubs, systolic murmur Pulses: PRESENT: normal dorsalis pedis pul Vascular exam: PRESENT: normal capillary refill GI/Abdominal exam: PRESENT: normal bowel sounds, soft. ABSENT: distended, guarding, mass, organolmegaly, rebound, tenderness Rectal exam: PRESENT: deferred Gentrourinary exam: PRESENT: other - Flank pain to percussion left side Extremities exam: PRESENT: full ROM. ABSENT: calf tenderness, clubbing, pedal edema Neurological exam: PRESENT: alert, awake, oriented to person, oriented to place , oriented to time, oriented to situation, CN II-XII grossly intact. ABSENT: motor sensory deficit Psychiatric exam: PRESENT: appropriate affect, normal mood. ABSENT: homicidal ideation, suicidal ideation Skin exam: PRESENT: dry, intact, warm. ABSENT: cyanosis, rash Results Impressions: Renal Ultrasound 04/01/16 23:43 IMPRESSION: Stable sonographic appearance of the kidneys, again noting left percutaneous nephrostomy and ureteral stent. Assessment & Plan - Diagnosis (1) Pyelonephritis Is this a current diagnosis for this admission?: YesPlan: Without obstruction blood and urine culture pending empiric antibiotics, IV fluids and symptomatically management reevaluation of labs (2) Flank pain Is this a current diagnosis for this admission?: YesPlan: Secondary to #1 symptomatically management (3) Tobacco abuse Is this a current diagnosis for this admission?: YesPlan: Tobacco Dependence patient received tobacco cessation counseling and offered nicotine replacement options - Time Time Spent: 30 to 50 Minutes
[2016-04-02] MEDS: HYDROCODONE/ACETAMINOPHEN 5-325 MG TABLET PO PRN ×3 (08:17→20:22)
[2016-04-02] MEDS ORDERED: ACETAMINOPHEN 325 MG TABLET PO PRN ×2 (08:50→09:02)
[2016-04-02] MEDS: TAMSULOSIN HCL 0.4 MG CAP.SR.24H PO SCH (09:22)
[2016-04-02] MEDS: NICOTINE 21 MG/24 HR PATCH.TD24 TD SCH (09:22)
[2016-04-02] MEDS: DOCUSATE SODIUM 100 MG CAPSULE PO SCH ×2 (09:23→17:29)
[2016-04-02] MEDS ORDERED: ALPRAZOLAM 0.5 MG TABLET PO ONE (09:30)
[2016-04-02] MEDS ORDERED: NORMAL SALINE 1000 ML 3,000 ML IV ONE (09:30)
[2016-04-02 09:42] LABS: URINE BARBITURATES SCREEN NEGATIVE; URINE METHADONE SCREEN NEGATIVE; URINE PHENCYCLIDINE SCREEN NEGATIVE
[2016-04-02] MEDS ORDERED: PIPERACILLIN SODIUM/TAZOBACTAM 4.5 GM in NORMAL SALINE 100 ML IV ONE (10:00)
[2016-04-02] MEDS ORDERED: CEFTRIAXONE SODIUM 1,500 MG in DEXTROSE 5%-WATER 100 ML IV SCH ×2 (10:00→22:00)
[2016-04-02 10:17] LABS: URINE OPIATES LOW UNCONFIRMED POSITIVE
[2016-04-02] MEDS: PIPERACILLIN SODIUM/TAZOBACTAM 4.5 GM in NORMAL SALINE 100 ML IV SCH ×2 (14:56→20:15)
[2016-04-02] MEDS: RISPERIDONE 1 MG TABLET PO SCH (17:29)
[2016-04-02] MEDS ORDERED: (PENDING PHARMACY ID) (Lamotrigine [Lamictal] 150 MG) PO SCH (18:00)
[2016-04-02] MEDS: LAMOTRIGINE 100 MG TABLET PO SCH (21:36)
[2016-04-02] MEDS ORDERED: VENLAFAXINE HCL 37.5 MG CAP.SR.24H PO SCH (22:00)
[2016-04-02] MEDS ORDERED: BUSPIRONE HCL 10 MG TABLET PO SCH (22:00)
[2016-04-03] MEDS: PIPERACILLIN SODIUM/TAZOBACTAM 4.5 GM in NORMAL SALINE 100 ML IV SCH ×3 (02:10→22:24)
[2016-04-03] MEDS: HYDROCODONE/ACETAMINOPHEN 5-325 MG TABLET PO PRN ×3 (02:12→15:18)
[2016-04-03] MEDS: HEPARIN SOD (PORCINE) 5,000 UNIT/ML 1 ML SYRINGE SUBCUT SCH ×3 (05:36→22:24)
[2016-04-03] MEDS: TAMSULOSIN HCL 0.4 MG CAP.SR.24H PO SCH (10:23)
[2016-04-03] MEDS: NICOTINE 21 MG/24 HR PATCH.TD24 TD SCH (10:23)
[2016-04-03] MEDS: LAMOTRIGINE 100 MG TABLET PO SCH ×2 (10:23→22:24)
[2016-04-03] MEDS: RISPERIDONE 1 MG TABLET PO SCH ×2 (10:24→18:35)
[2016-04-03] MEDS: DOCUSATE SODIUM 100 MG CAPSULE PO SCH ×2 (10:24→18:35)
[2016-04-03] MEDS ORDERED: LANSOPRAZOLE 15 MG TAB.RAP.DR PO ONE (11:00)
[2016-04-03] MEDS ORDERED: HYDROMORPHONE HCL INJ/PF 2 MG/ML AMPULE IM PRN (11:48)
--- NOTE | 2016-04-03 16:38 | Operative Report ---
Operative Report DATE OF SURGERY: 04/03/16 PREOPERATIVE DIAGNOSIS: Need for venous access. POSTOPERATIVE DIAGNOSIS: Need for venous access. OPERATION: Right internal jugular vein 7 English triple-lumen catheter placement with ultrasound guidance SURGEON: TRACY RUSSELL ANESTHESIA: Local TISSUE REMOVED OR ALTERED: None COMPLICATIONS: None noted. Chest x-ray is ordered at the time of this dictation. ESTIMATED BLOOD LOSS: minimal INTRAOPERATIVE FINDINGS: Right common carotid artery and right internal jugular vein in the normal position as identified on ultrasound. PROCEDURE: Timeout was performed. The patient was prepped and draped in normal sterile fashion. Ultrasound was used to identify the right internal jugular vein and right common carotid artery. The skin over the vein was infiltrated with local anesthetic. An 11 blade scalpel was used to make a skin kyler. Under ultrasound guidance, a Cook needle was used to cannulate the right internal jugular vein with return of nonpulsatile dark red venous blood. Seldinger technique was used. The guidewire was placed. The Cook needle was removed. The tract was dilated. Catheter was placed over the guidewire. The guidewire was removed. All lumens easily aspirated and flushed. The catheter was sewn in place at the skin and at the end hub. A Biopatch was placed. A sterile dressing was placed. All sharps were accounted for and disposed of properly. The patient tolerated the procedure well. A chest x-ray was ordered and is pending at the time of this note.
[2016-04-03] MEDS ORDERED: NORMAL SALINE INJ/PF 0.9% 10 ML SDV IV PRN (18:31)
[2016-04-03] MEDS: LANSOPRAZOLE 15 MG TAB.RAP.DR PO SCH (18:35)
[2016-04-03] MEDS: MORPHINE SULFATE 10 MG/ML INJ IV PRN ×2 (18:36→22:40)
--- NOTE | 2016-04-03 20:39 | PDOC PROGRESS REPORT ---
Subjective Progress Note for:: 04/03/16 Subjective:: Patient lost IV access and requested PICC line but consented for central line has PICC line is unavailable. Patient continues to complain of generalized pain as well as pain associated with her nephrostomy tube. Patient denies chest pain, shortness of breath, abdominal pain, nausea, vomiting, fevers, chills, diarrhea, constipation, headache, new onset weakness. Physical Exam Vital Signs: Temp Pulse Resp BP Pulse Ox 98.5 F 87 18 101/46 L 99 04/03/16 03:31 04/03/16 03:31 04/03/16 03:31 04/03/16 03:31 04/03/16 03:31 Intake & Output 04/02/16 04/03/16 04/04/16 06:59 06:59 06:59 Intake Total 6619 Output Total 3700 Balance 2919 Weight 68.6 kg 72.2 kg Exam: General: Awake alert and orientedx3, no acute respiratory distress HEENT: AT/NC, PERRL, EOMI, oropharynx is moist, pink, no scleral icterus, no conjunctival injection Neck: No JVD, trachea midline Chest: Clear to auscultation bilaterally, no wheezes rhonchi or rales CV: Regular rate and rhythm, normal S1 and S2, no murmur, rub, or gallop Abdomen: Soft, nontender to palpation, nondistended, active bowel sounds; no rebound, rigidity, or guarding, Back: nephrostomy tube present Extremities: No cyanosis, clubbing or edema Neuro: Cranial nerves II through XII are grossly intact without focal deficits; awake alert and oriented x3 Psych: Normal mood and affect Results Impressions: Renal Ultrasound 04/01/16 23:43 IMPRESSION: Stable sonographic appearance of the kidneys, again noting left percutaneous nephrostomy and ureteral stent. Assessment & Plan - Diagnosis (1) Pyelonephritis Is this a current diagnosis for this admission?: YesPlan: Continue patient on Zosyn. Continue IV fluids. Have place when necessary morphine in addition to Vicodin. (2) Tobacco abuse Is this a current diagnosis for this admission?: YesPlan: Nicotine patch when necessary (3) Bipolar 1 disorder Is this a current diagnosis for this admission?: YesPlan: Continue home medications - Time Time Spent with patient: 25-34 minutes Medications reviewed and adjusted accordingly: Yes
[2016-04-03 21:34] LABS: APPEARANCE,URINE SLIGHTLY-CLOUDY; BILIRUBIN,URINE NEGATIVE (NEGATIVE); GLUCOSE, URINE NEGATIVE (NEGATIVE); KETONES,URINE NEGATIVE (NEGATIVE); LEUKOCYTE ESTERASE,URINE TRACE (NEGATIVE); NITRITE,URINE NEGATIVE (NEGATIVE); PROTEIN,URINE NEGATIVE (NEGATIVE); URINE SPECIFIC GRAVITY 1.011; UROBILINOGEN,URINE NEGATIVE mg/dL (<2.0)
[2016-04-04] MEDS: MORPHINE SULFATE 10 MG/ML INJ IV PRN ×6 (03:02→23:42)
[2016-04-04] MEDS: LANSOPRAZOLE 15 MG TAB.RAP.DR PO SCH ×2 (06:24→17:30)
[2016-04-04] MEDS: PIPERACILLIN SODIUM/TAZOBACTAM 4.5 GM in NORMAL SALINE 100 ML IV SCH ×4 (06:24→23:29)
[2016-04-04] MEDS: HEPARIN SOD (PORCINE) 5,000 UNIT/ML 1 ML SYRINGE SUBCUT SCH ×3 (06:24→23:30)
[2016-04-04 07:03] LABS: ABSOLUTE EOSINOPHILS # (AUTO) 0.1 10^3/uL (0.0-0.6); ABSOLUTE LYMPHOCYTES (AUTO) 1.8 10^3/uL (0.5-4.7); ABSOLUTE MONOCYTES (AUTO) 0.4 10^3/uL (0.1-1.4); ABSOLUTE NEUT (AUTO) 3.9 10^3/uL (1.7-8.2); BASOPHILS % (AUTO) 0.4 % (0-2); EOSINOPHILS % (AUTO) 1.9 % (0-6); HEMATOCRIT 32.9 % (36.0-47.0); HGB HCT DIFFERENCE 0.7; MEAN CORPUSCULAR HEMOGLOBIN 29.3 pg (27.0-33.4); MEAN CORPUSCULAR VOLUME 86 fl (80-97); MONOCYTES % (AUTO) 6.3 % (3-13); RED BLOOD COUNT 3.82 10^6/uL (3.72-5.28); RED CELL DISTRIBUTION WIDTH 13.3 % (11.5-14.0); SEGMENTED NEUTROPHILS % (AUTO) 62.4 % (42-78); WHITE BLOOD COUNT 6.2 10^3/uL (4.0-10.5)
[2016-04-04 07:20] LABS: HEMOGLOBIN 11.2 g/dL (12.0-15.5)
[2016-04-04 07:21] LABS: ANION GAP 7 (5-19); BLOOD UREA NITROGEN 6 mg/dL (7-20); CALCIUM 8.5 mg/dL (8.4-10.2); CARBON DIOXIDE 29 mmol/L (22-30); CHLORIDE 103 mmol/L (98-107); CREATININE RESULT 0.67 mg/dL (0.52-1.25); GLUCOSE 100 mg/dL (75-110); POTASSIUM 3.7 mmol/L (3.6-5.0); SODIUM 139.3 mmol/L (137-145)
[2016-04-04] MEDS: LAMOTRIGINE 100 MG TABLET PO SCH ×2 (09:10→23:29)
[2016-04-04] MEDS: DOCUSATE SODIUM 100 MG CAPSULE PO SCH ×2 (09:10→17:30)
[2016-04-04] MEDS: TAMSULOSIN HCL 0.4 MG CAP.SR.24H PO SCH (09:10)
[2016-04-04] MEDS: RISPERIDONE 1 MG TABLET PO SCH ×2 (09:10→17:30)
[2016-04-04] MEDS: NICOTINE 21 MG/24 HR PATCH.TD24 TD SCH (09:11)
[2016-04-05] MEDS: MORPHINE SULFATE 10 MG/ML INJ IV PRN ×3 (04:27→13:40)
--- NOTE | 2016-04-05 05:02 | PDOC PROGRESS REPORT ---
Subjective Progress Note for:: 04/04/16 Subjective:: Patient complains of back pain. She also reports she would like her Xanax, but understands why she cannot have her morphine and Xanax at the same time.Patient denies chest pain, shortness of breath, abdominal pain, nausea, vomiting, fevers , chills, diarrhea, constipation, headache, new onset weakness. Physical Exam Vital Signs: Temp Pulse Resp BP Pulse Ox 97.4 F 75 15 102/57 L 98 04/04/16 07:33 04/04/16 07:33 04/04/16 07:33 04/04/16 07:33 04/04/16 07:33 Intake & Output 04/03/16 04/04/16 04/05/16 06:59 06:59 06:59 Intake Total 6667 2431 Output Total 3700 4400 Balance 3789 -8427 Weight 72.2 kg 72.2 kg Exam: General: Awake alert and orientedx3, no acute respiratory distress HEENT: AT/NC, PERRL, EOMI, oropharynx is moist, pink, no scleral icterus, no conjunctival injection Neck: No JVD, trachea midline Chest: Clear to auscultation bilaterally, no wheezes rhonchi or rales CV: Regular rate and rhythm, normal S1 and S2, no murmur, rub, or gallop Abdomen: Soft, nontender to palpation, nondistended, diminished bowel sounds; no rebound, rigidity, or guarding, Back: Left nephrostomy tube present Extremities: No cyanosis, clubbing or edema Neuro: Cranial nerves II through XII are grossly intact without focal deficits; awake alert and oriented x3 Psych: Normal mood and affect Results Laboratory Results: 04/04/16 06:30 04/04/16 06:30 04/03/16 04/04/16 04/04/16 20:03 06:30 06:30 WBC 6.2 RBC 3.82 Hgb 11.2 L D Hct 32.9 L MCV 86 MCH 29.3 MCHC 34.0 RDW 13.3 Plt Count 307 Seg Neutrophils % 62.4 Lymphocytes % 29.0 Monocytes % 6.3 Eosinophils % 1.9 Basophils % 0.4 Absolute Neutrophils 3.9 Absolute Lymphocytes 1.8 Absolute Monocytes 0.4 Absolute Eosinophils 0.1 Absolute Basophils 0.0 Sodium 139.3 Potassium 3.7 Chloride 103 Carbon Dioxide 29 Anion Gap 7 BUN 6 L Creatinine 0.67 Est GFR ( Amer) > 60 Est GFR (Non-Af Amer) > 60 Glucose 100 Calcium 8.5 Urine Color YELLOW Urine Appearance SLIGHTLY-CLOUDY Urine pH 7.0 Ur Specific [place] 1.011 Urine Protein NEGATIVE Urine Glucose (UA) NEGATIVE Urine Ketones NEGATIVE Urine Blood SMALL H Urine Nitrite NEGATIVE Ur Leukocyte Esterase TRACE H Urine WBC (Auto) 11 Urine RBC (Auto) 2 Impressions: Renal Ultrasound 04/01/16 23:43 IMPRESSION: Stable sonographic appearance of the kidneys, again noting left percutaneous nephrostomy and ureteral stent. Chest X-Ray 04/03/16 00:00 IMPRESSION: SATISFACTORY POSITION OF THE CENTRAL LINE. NO PNEUMOTHORAX. NO ACUTE RADIOGRAPHIC FINDING IN THE CHEST. Assessment & Plan - Diagnosis (1) Pyelonephritis Is this a current diagnosis for this admission?: YesPlan: Continue patient on Zosyn day #2. Continue IV fluids. On morphine in addition to Vicodin. Patient growing Pseudomonas which is drug resistant and a second gram-negative ronnie. (2) Tobacco abuse Is this a current diagnosis for this admission?: YesPlan: Nicotine patch when necessary (3) Bipolar 1 disorder Is this a current diagnosis for this admission?: YesPlan: Continue home medications - Time Time Spent with patient: 25-34 minutes Medications reviewed and adjusted accordingly: Yes
[2016-04-05] MEDS: HEPARIN SOD (PORCINE) 5,000 UNIT/ML 1 ML SYRINGE SUBCUT SCH (06:25)
[2016-04-05] MEDS: LANSOPRAZOLE 15 MG TAB.RAP.DR PO SCH (06:25)
[2016-04-05] MEDS: PIPERACILLIN SODIUM/TAZOBACTAM 4.5 GM in NORMAL SALINE 100 ML IV SCH (06:25)
[2016-04-05 07:15] LABS: ABSOLUTE EOSINOPHILS # (AUTO) 0.2 10^3/uL (0.0-0.6); ABSOLUTE LYMPHOCYTES (AUTO) 2.1 10^3/uL (0.5-4.7); ABSOLUTE MONOCYTES (AUTO) 0.4 10^3/uL (0.1-1.4); ABSOLUTE NEUT (AUTO) 2.9 10^3/uL (1.7-8.2); BASOPHILS % (AUTO) 0.7 % (0-2); HEMATOCRIT 33.9 % (36.0-47.0); HEMOGLOBIN 11.5 g/dL (12.0-15.5); HGB HCT DIFFERENCE 0.6; LYMPHOCYTES % (AUTO) 37.8 % (13-45); MEAN CORPUSCULAR HEMOGLOBIN 29.4 pg (27.0-33.4); MEAN CORPUSCULAR VOLUME 87 fl (80-97); MONOCYTES % (AUTO) 6.4 % (3-13); RED BLOOD COUNT 3.91 10^6/uL (3.72-5.28); RED CELL DISTRIBUTION WIDTH 13.4 % (11.5-14.0); SEGMENTED NEUTROPHILS % (AUTO) 52.1 % (42-78); WHITE BLOOD COUNT 5.5 10^3/uL (4.0-10.5)
[2016-04-05 07:34] LABS: ANION GAP 9 (5-19); BLOOD UREA NITROGEN 7 mg/dL (7-20); CALCIUM 8.9 mg/dL (8.4-10.2); CARBON DIOXIDE 31 mmol/L (22-30); CHLORIDE 100 mmol/L (98-107); CREATININE RESULT 0.64 mg/dL (0.52-1.25); GLUCOSE 84 mg/dL (75-110)
[2016-04-05] MEDS: RISPERIDONE 1 MG TABLET PO SCH (09:17)
[2016-04-05] MEDS: NICOTINE 21 MG/24 HR PATCH.TD24 TD SCH (09:17)
[2016-04-05] MEDS: DOCUSATE SODIUM 100 MG CAPSULE PO SCH (09:17)
[2016-04-05] MEDS: LAMOTRIGINE 100 MG TABLET PO SCH (09:17)
[2016-04-05] MEDS: TAMSULOSIN HCL 0.4 MG CAP.SR.24H PO SCH (09:17)
[2016-04-05] MEDS ORDERED: ERTAPENEM SODIUM 1 GM in NORMAL SALINE 50 ML IV SCH (12:00)
[2016-04-05 12:01] VITALS: BP 109/57
--- NOTE | 2016-04-05 15:00 | PDOC DISCHARGE SUMMARY ---
General - Admit/Disc Date/PCP Admission Date/Primary Care Provider: 04/02/16 03:36 Discharge Date: 04/05/16 - Discharge Diagnosis (1) Pyelonephritis Is this a current diagnosis for this admission?: Yes (2) Renal calculus, left Is this a current diagnosis for this admission?: Yes (3) Nephrostomy status Is this a current diagnosis for this admission?: Yes (4) Bipolar 1 disorder Is this a current diagnosis for this admission?: Yes (5) Tobacco abuse Is this a current diagnosis for this admission?: Yes - Additional Information Resuscitation Status: Full Code Discharge Diet: Regular Discharge Activity: Activity As Tolerated Home Medications: Alprazolam [Xanax] 1 mg PO DAILY 04/02/16 Dextroamphetamine/Amphetamine [Adderall 20 mg Tablet] 20 mg PO BID 04/02/16 Lamotrigine [Lamictal] 150 mg PO Q4HP PRN 04/02/16 Risperidone [Risperdal 1 mg Tablet] 1 mg PO BID 04/02/16 Docusate Sodium [Colace 100 mg Capsule] 100 mg PO BID #60 capsule 04/05/16 Ertapenem Sodium [Invanz Inj 1 gm Vial] 1 gm IV NOON 7 Days 04/05/16 Hydrocodone/Acetaminophen [[place] 5-325 mg Tablet] 1 tab PO Q4HP PRN #30 tablet 04/05/16 History of Present Illness History of Present Illness: KATE PASTOR is a 45 year old female is admitted for pyelonephritis complicated by left nephrostomy tube and left renal calculus. Patient admits to not going to her follow-up appointment with urology Dr. Engle in [facility] in January of last year. She states that she was too busy and had transportation issues. Hospital Course Hospital Course: Patient was noted for pyelonephritis. Culture grew Escherichia coli and Pseudomonas both sensitive to ertapenem. PICC line was placed and patient will be discharged home on IV ertapenem until 04/15/2016. Patient has left renal calculus and prior left nephrostomy tube. She has been followed by Dr. Engle of urology in [facility]. She admits to missing her appointment in January 2016 secondary to transportation issues. She is strongly advised to follow-up with Dr. Engle of urology for definitive management of her urologic issues. Patient is counseled on smoking cessation. Physical Exam Vital Signs: Temp Pulse Resp BP Pulse Ox 97.9 F 86 16 109/57 L 100 04/05/16 12:00 04/05/16 12:00 04/05/16 12:00 04/05/16 12:00 04/05/16 12:00 Intake & Output 04/04/16 04/05/16 04/06/16 06:59 06:59 06:59 Intake Total 2431 1580 690 Output Total 4400 1500 Balance -1969 80 690 Weight 72.2 kg GENERAL: No acute distress HEENT: Conjunctiva clear, nonicteric, moist mucous membranes, no JVD, midline trachea RESPIRATORY: Clear to auscultation bilaterally, no wheezes, no rhonchi CARDIAC: Regular rate and rhythm, no murmurs/gallops/rubs ABDOMEN: Soft, nondistended, nontender, positive bowel sounds, no rebound, no guarding EXTREMETIES: No edema, cyanosis, clubbing NEUROLOGIC: Alert, oriented to person/place/time, CN's grossly intact, no focal deficits SKIN: Left flank nephrostomy tube PSYCH: Normal mood, normal affect Results Laboratory Results: 04/05/16 06:30 04/05/16 06:30 04/05/16 04/05/16 06:30 06:30 WBC 5.5 RBC 3.91 Hgb 11.5 L Hct 33.9 L MCV 87 MCH 29.4 MCHC 34.0 RDW 13.4 Plt Count 328 Seg Neutrophils % 52.1 Lymphocytes % 37.8 Monocytes % 6.4 Eosinophils % 3.0 Basophils % 0.7 Absolute Neutrophils 2.9 Absolute Lymphocytes 2.1 Absolute Monocytes 0.4 Absolute Eosinophils 0.2 Absolute Basophils 0.0 Sodium 140.0 Potassium 4.0 Chloride 100 Carbon Dioxide 31 H Anion Gap 9 BUN 7 Creatinine 0.64 Est GFR ( Amer) > 60 Est GFR (Non-Af Amer) > 60 Glucose 84 Calcium 8.9 04/03/16 20:03 Urine Culture - Preliminary Nephrostomy Tube Gram Negative Rods Corynebacterium Species 04/01/16 23:53 Urine Culture - Cancelled Nephrostomy Tube 04/01/16 23:53 Urine Culture - Final Clean Catch Midstream Pseudomonas Aeruginosa Escherichia Coli Impressions: Renal Ultrasound 04/01/16 23:43 IMPRESSION: Stable sonographic appearance of the kidneys, again noting left percutaneous nephrostomy and ureteral stent. Chest X-Ray 04/03/16 00:00 IMPRESSION: SATISFACTORY POSITION OF THE CENTRAL LINE. NO PNEUMOTHORAX. NO ACUTE RADIOGRAPHIC FINDING IN THE CHEST. Guidance Fluoroscopy 04/05/16 00:00 IMPRESSION: SUCCESSFUL PLACEMENT OF A 5 FR DUAL LUMEN 40 CM PICC IN THE left basilic VEIN. Interventional Vascular Procedure 04/05/16 00:00 IMPRESSION: SUCCESSFUL PLACEMENT OF A 5 FR DUAL LUMEN 40 CM PICC IN THE left basilic VEIN. PICC Line Insertion 04/05/16 00:00 IMPRESSION: SUCCESSFUL PLACEMENT OF A 5 FR DUAL LUMEN 40 CM PICC IN THE left basilic VEIN. Qualifiers PATEINT BEING DISCHARGED WITH ANY OF THE FOLLOWING DIAGNOSIS?: No Plan Time Spent: Less than 30 Minutes
== END 2016-04-05 17:38 | disposition home or self-care (01) | DRG 690 ==
LOC: ER 19:37 → EH 04-02 03:36 → UNDOADMIN 04-02 04:04 → EH 04-02 04:04 → 5 04-02 06:56
PROVIDERS: ADMIT Internal Medicine; ATTEND Internal Medicine
PROC: 02HV33Z Insertion of Infusion Device into Superior Vena Cava, Percutaneous Approach (ICD-10-PCS; principal; 2016-04-03)
PROC: B548ZZA Ultrasonography of Superior Vena Cava, Guidance (ICD-10-PCS; 2016-04-03)
DX: N10 Acute pyelonephritis (principal); B96.20 Unspecified Escherichia coli [E. coli] as the cause of diseases classified elsewhere; B96.5 Pseudomonas (aeruginosa) (mallei) (pseudomallei) as the cause of diseases classified elsewhere; J45.909 Unspecified asthma, uncomplicated; G43.909 Migraine, unspecified, not intractable, without status migrainosus; M79.7 Fibromyalgia; F41.9 Anxiety disorder, unspecified; F31.9 Bipolar disorder, unspecified; F17.210 Nicotine dependence, cigarettes, uncomplicated; F90.9 Attention-deficit hyperactivity disorder, unspecified type; E89.0 Postprocedural hypothyroidism; Z93.6 Other artificial openings of urinary tract status; Z88.6 Allergy status to analgesic agent; Z88.8 Allergy status to other drugs, medicaments and biological substances; Z86.19 Personal history of other infectious and parasitic diseases; Z82.49 Family history of ischemic heart disease and other diseases of the circulatory system
CPT/HCPCS: 36415; 36569; 71010; 76775; 76937; 77001; 80048; 80053; 80307; 81001; 85025; 87086; 87088; 87186; 99285; C1751; C1769; G0480; J1170; J1335; J1642; J1644; J2270; J2543; J3490; J7030; S0119

== ENCOUNTER 2016-04-20 12:44 | Emergency (ER) | payer MEDICAID ==
[2016-04-20] MEDS ORDERED: NORMAL SALINE 1000 ML 1,000 ML IV ONE ×2 (14:26→22:59)
--- NOTE | 2016-04-20 15:29 | ER Document Report ---
ED GI/ <JHONATANKATE - Last Filed: 04/20/16 23:21> - General Time seen by provider: 14:30 Mode of Arrival: Medic Information source: Patient TRAVEL OUTSIDE OF THE [place] IN LAST 30 DAYS: No - HPI Patient complains to provider of: Other - Patient states that she thinks she is going into "spetic shock" Onset: Just prior to arrival Associated symptoms: Other - see above <TODD CASH - Last Filed: 04/20/16 23:25> <THEODORE TITUS - Last Filed: 04/21/16 15:25> <YEFRI LUIS - Last Filed: 04/23/16 05:10> - General Chief Complaint: Possible Kidney Stone Stated Complaint: WEAKNESS Notes: 46 year old female with history of septic kidney stones and chronic tubulointerstitial nephritis (diagnosed at age 14) presents to the ED complaining of being in "septic shock." Patient states that she is in pain and is requesting that she get some pain relief. Patient is complaining of bilateral flank pain and chills. Patient was seeing Dr. Engle in [place] for chronic management of her condition and states that she was referred to a pain management by [facility], but missed the appointment. Patient states that she currently has multiple kidney stones in the bilateral kidneys diagnosed by Dr. Engle (4 months ago). Patient has a picc line in place that was being used to treat a kidney infection the [facility]. Patient also reports that she had a CT scan performed the last time she was here. Patient reports that she ran out of pain medications "a while ago." She used to be getting 120 pills and 10 fentanyl patches a month. Patient denies ever being put on dialysis. (TODD CASH) - Related Data Allergies/Adverse Reactions: prochlorperazine edisylate [From Compazine] Allergy (Severe, Verified 03/17/16 10:54) Swelling of Throat hydrocodone [From Vicodin] Allergy (Verified 03/17/16 10:54) ketorolac [From Toradol] Allergy (Verified 03/17/16 10:54) prochlorperazine maleate [From Compazine] Allergy (Verified 03/17/16 10:54) tramadol Allergy (Verified 03/17/16 10:54) Home Medications: Current Home Medications Alprazolam [Xanax] 1 mg PO DAILYP PRN 04/20/16 [History] Dextroamphetamine/Amphetamine [Adderall 20 mg Tablet] 1 tab PO DAILY 04/20/16 [ History] Docusate Sodium [Colace 100 mg Capsule] 100 mg PO BID 04/20/16 [History] Lamotrigine [Lamictal] 150 mg PO DAILY 04/20/16 [History] Risperidone [Risperdal 1 mg Tablet] 1 mg PO Q12 04/20/16 [History] Past Medical History - General Information source: Patient - Social History Smoking Status: Current Every Day Smoker Chew tobacco use (# tins/day): Yes - 1/2 pk Frequency of alcohol use: None Drug Abuse: None Family History: COPD, Hypertension Pulmonary Medical History: Reports: Hx Asthma, Hx Bronchitis Neurological Medical History: Reports: Hx Migraine Endocrine Medical History: Reports: Hx Hypothyroidism Renal/ Medical History: Reports: Hx Kidney Stones, Other - chronic tubulointerstitial nephritis. Denies: Hx Peritoneal Dialysis GI Medical History: Reports: Hx Hepatitis - Hep C Musculoskeltal Medical History: Reports Hx Fibromyalgia Psychiatric Medical History: Reports: Hx Anxiety, Hx Attention Deficit Hyperactivity Disorder, Hx Bipolar Disorder Infectious Medical History: Reports: Hx Hepatitis - Hep C Past Surgical History: Reports: Hx Kidney (Renal Surgery) - stones, Hx Thyroid Surgery - partial thyroidectomy, Other - Nephrostomy tube left side - Immunizations Hx Diphtheria, Pertussis, Tetanus Vaccination: Yes <TODD CASH - Last Filed: 04/20/16 23:25> Review of Systems - Review of Systems Constitutional: See HPI, Chills, Recent illness - bilateral kidney stones EENT: No symptoms reported Cardiovascular: No symptoms reported Respiratory: No symptoms reported Gastrointestinal: No symptoms reported Genitourinary: See HPI, Flank pain - bilateral Female Genitourinary: No symptoms reported Musculoskeletal: No symptoms reported Skin: No symptoms reported Hematologic/Lymphatic: No symptoms reported Neurological/Psychological: No symptoms reported -: Yes All other systems reviewed and negative <TODD CASH - Last Filed: 04/20/16 23:25> Physical Exam <KATE ISRAEL - Last Filed: 04/20/16 23:21> - General General appearance: Alert In distress: None - HEENT Head: Normocephalic, Atraumatic Eyes: Normal Extraocular movements intact: Yes Pupils: PERRL Mucous membranes: Dry - Respiratory Respiratory status: No respiratory distress Breath sounds: Normal - Cardiovascular Rhythm: Regular, Tachycardia Heart sounds: Normal auscultation - Abdominal Inspection: Normal Distension: No distension Tenderness: Nontender - Back Back: Normal, Nontender - Extremities General upper extremity: Normal inspection, Normal ROM General lower extremity: Normal inspection, Normal ROM - Neurological Neuro grossly intact: Yes Cognition: Normal Orientation: AAOx4 [place] Coma Scale Eye Opening: Spontaneous [place] Coma Scale Verbal: Oriented [place] Coma Scale Motor: Obeys Commands [place] Coma Scale Total: 15 Speech: Normal - Psychological Associated symptoms: Normal affect, Normal mood - Skin Skin Temperature: Warm Skin Moisture: Dry Skin Color: Normal <TODD CASH - Last Filed: 04/20/16 23:25> <THEODORE TITUS - Last Filed: 04/21/16 15:25> <YEFRI LUIS - Last Filed: 04/23/16 05:10> - Vital signs Vitals: Temp BP Pulse Ox 98.6 F 107/61 99 04/20/16 13:50 04/20/16 13:50 04/20/16 13:50 (KATE ISRAEL) (THEODROE TITUS) (YEFRI LUIS) - Notes Notes: Patient is persistently requesting narcotic medication. (TODD CASH) Course - Laboratory Result Diagrams: 04/20/16 15:00 04/20/16 15:00 <KATE ISRAEL - Last Filed: 04/20/16 23:21> - Laboratory Result Diagrams: 04/20/16 15:00 04/20/16 15:00 - Consults Dr. Garcia Time consulted: 21:15 <TODD CASH - Last Filed: 04/20/16 23:25> - Laboratory Result Diagrams: 04/20/16 15:00 04/20/16 15:00 <THEODORE TITUS - Last Filed: 04/21/16 15:25> - Laboratory Result Diagrams: 04/23/16 01:10 04/23/16 01:10 <YEFRI LUIS - Last Filed: 04/23/16 05:10> - Re-evaluation Re-evalutation: 04/20/16 16:42 I personally performed the services described in the documentation, reviewed and edited the documentation which was dictated to my scribe in my presence, and it accurately records my words and actions. Patient presents to the emergency department with a chief complaint of feeling unwell cold chills. Patient is a 46-year-old female with history of chronic tubular interstitial nephritis chronic pain hepatitis C and substance abuse. She does not follow up with her Dr. Engle urinary specialist in months she has a local primary care physician she hasn't follow-up with at one point she was on his much is 110 oxycodone with fentanyl patches and states that they no longer give that to her. Has not seen pain management. Most recently was discharged hospital with a PICC line in her septic stone she has a stent in place. Today she presents tachycardic but normotensive initially afebrile but repeat temperature 101.5. On examination she is asking for narcotics. Explained to her that we needed to figure out what was going on prior to doing that. She does have an elevated white blood count elevation with no bandemia she has a large urinary tract infection and urine cultures are pending kidney function is normal CT of the abdomen and pelvis shows a stent in place but no hydronephrosis or stone. Reassessment treated for fever fluids she's be receiving antibiotics oral intake. Long discussion with her as well as hospitalist at this point management of infection. She also has additional problems with chronic pain management and narcotic substance use. This will need to be addressed and followed up with going forward with pain management. At this point I'm treating the fever and the infection which is why I'm admitting her. I'm concerned there is underlying substance abuse issues and that we need to address this with her going forward. Dr. Guerrero and Dr. King from hospitalist group calling back they said that they have seen her in the past and that she has refused to go get her nephrostomy tube removed due to transportation issues we believe she is getting chronic recurrent urinary tract infections can developing complications as a result of that stent needed to be removed. They are recommending transfer at this time which I think is appropriate. Patient does have a urolog[facility]. 04/20/16 17:34 04/20/16 17:37 04/20/16 17:44 04/20/16 23:21 (KATE ISRAEL) Patient still pending transfer to [facility]. Will continue antibiotics. Patient reevaluated otherwise blood pressures have been slightly low however patient does state this is normal for self. Patient is asymptomatic Will continue to monitor signed out to oncoming physician 04/21/16 15:25 04/21/16 15:26 (THEODORE TITUS) 04/23/16 05:[address] Guerrier, urologist covering of [facility], reviewed her new labs with him. Informed him that she has been doing well. She says that she feels well and improved. Her urine is improving. Her white blood cell count has normalized. She's had no fevers. He does agree that it is okay to discharge her home with close follow-up with them at the office. He recommends a third-generation cephalosporin being that she has done well with Rocephin.. I will place her on Ceftin ear. I strongly encouraged return to ER shows worsening pain, fevers, or feels unwell. She is requesting pain medicine. She is supposed to be following up with pain management. I will give her [place] to go pack but informed her any further pain management has to be performed by her doctor. Patient agrees with plan will be discharged home. Dictation of this chart was performed using voice recognition software; therefore, there may be some unintended grammatical errors. (YEFRI LUIS) - Vital Signs Vital signs: Temp Pulse Resp BP Pulse Ox 98.7 F 98 23 H 94/60 L 99 04/23/16 03:46 04/21/16 06:34 04/23/16 04:52 04/23/16 04:52 04/23/16 04:52 (KATE ISRAEL) (TODD CASH) (THEODORE TITUS) (YEFRI LUIS) - Laboratory Laboratory results interpreted by me: 04/20/16 04/20/16 04/21/16 15:00 15:00 15:50 WBC 25.1 H RBC Hgb Hct RDW 14.3 H Seg Neuts % (Manual) 86 H Lymphocytes % (Manual) 7 L Abs Neuts (Manual) 22.6 H Potassium 3.3 L Chloride 108 H BUN Creatinine 0.50 L Glucose Calcium 8.0 L Total Protein 5.6 L Albumin 2.6 L Urine Blood MODERATE H Urine Nitrite POSITIVE H Urine Urobilinogen Ur Leukocyte Esterase LARGE H 04/23/16 04/23/16 04/23/16 01:10 01:10 01:10 WBC RBC 3.18 L Hgb 9.3 L D Hct 26.9 L RDW 14.1 H Seg Neuts % (Manual) Lymphocytes % (Manual) Abs Neuts (Manual) Potassium 3.5 L Chloride BUN 6 L Creatinine Glucose 117 H Calcium 7.8 L Total Protein Albumin Urine Blood SMALL H Urine Nitrite Urine Urobilinogen 2.0 H Ur Leukocyte Esterase MODERATE H (KATE ISRAEL) (THEODORE TITUS) (YEFRI LUIS) - Consults Dr. Garcia Reason for consultation: 04/20/16 21:15 [facility] transfer line was called. 04/20/16 22:29 I was connected with Dr. Garcia and the patient was discussed. Dr. Garcia agrees to accept the patient for transfer. (TODD CASH) Critical Care Note - Critical Care Note Total time excluding time spent on procedures (mins): 45 <KATE ISRAEL - Last Filed: 04/20/16 23:21> Discharge <KATE ISRAEL - Last Filed: 04/20/16 23:21> <TODD CASH - Last Filed: 04/20/16 23:25> <THEODORE TITUS - Last Filed: 04/21/16 15:25> <YEFRI LUIS - Last Filed: 04/23/16 05:10> - Discharge Clinical Impression: Acute UTI, SIRS (systemic inflammatory response syndrome) Chronic pain Qualifiers: Chronic pain type: chronic pain syndrome Qualified Code(s): G89.4 - Chronic pain syndrome Condition: Good Disposition: HOME, SELF-CARE Instructions: Oral Narcotic Medication ([facility]) Additional Instructions: Please take the antibiotics as prescribed. Please return to ER immediately if you have worsening pain, high fevers, vomiting, or feel that you're becoming sick again. Please call Dr. Engle, your urologist, on Monday morning for a close follow-up appoint. Prescriptions: Cefdinir [Omnicef 300 mg Capsule] 1 cap PO BID #20 capsule Oxycodone HCl/Acetaminophen [Percocet 5-325 mg Tablet] 1 tab PO Q4H PRN #10 tablet PRN Reason: Scribe Documentation - Scribe Written by Scribe:: Karen Love, 04/20/2016 1610 acting as scribe for :: Jhonatan <TODD CASH - Last Filed: 04/20/16 23:25>
[2016-04-20 15:36] LABS: APPEARANCE,URINE SLIGHTLY-CLOUDY; BILIRUBIN,URINE NEGATIVE (NEGATIVE); GLUCOSE, URINE NEGATIVE (NEGATIVE); KETONES,URINE NEGATIVE (NEGATIVE); LEUKOCYTE ESTERASE,URINE LARGE (NEGATIVE); NITRITE,URINE POSITIVE (NEGATIVE); PROTEIN,URINE NEGATIVE (NEGATIVE); URINE SPECIFIC GRAVITY 1.003; UROBILINOGEN,URINE NEGATIVE mg/dL (<2.0)
[2016-04-20] MEDS ORDERED: CEFTRIAXONE INJ 1000 MG VIAL IM ONE (15:40)
[2016-04-20 15:41] LABS: ANION GAP 12 (5-19); BLOOD UREA NITROGEN 11 mg/dL (7-20); CALCIUM 8.8 mg/dL (8.4-10.2); CARBON DIOXIDE 24 mmol/L (22-30); CHLORIDE 101 mmol/L (98-107); GLUCOSE 96 mg/dL (75-110); HEMATOCRIT 36.9 % (36.0-47.0); HEMOGLOBIN 12.7 g/dL (12.0-15.5); HGB HCT DIFFERENCE 1.2; MEAN CORPUSCULAR HEMOGLOBIN 28.8 pg (27.0-33.4); MEAN CORPUSCULAR HGB CONC 34.5 g/dL (32.0-36.0); MEAN CORPUSCULAR VOLUME 84 fl (80-97); POTASSIUM 4.6 mmol/L (3.6-5.0); RED BLOOD COUNT 4.42 10^6/uL (3.72-5.28); RED CELL DISTRIBUTION WIDTH 14.3 % (11.5-14.0); SODIUM 137.1 mmol/L (137-145); WHITE BLOOD COUNT 25.1 10^3/uL (4.0-10.5)
[2016-04-20 15:44] LABS: URINE BARBITURATES SCREEN NEGATIVE; URINE METHADONE SCREEN NEGATIVE; URINE OPIATES LOW NEGATIVE; URINE PHENCYCLIDINE SCREEN NEGATIVE
[2016-04-20 15:54] LABS: BAND NEUTROPHILS % (MANUAL) 4 % (3-5); BASOPHILS % (MANUAL) 0 % (0-2); EOSINOPHILS % (MANUAL) 0 % (0-6); LYMPHOCYTES % (MANUAL) 7 % (13-45); TOTAL CELLS COUNTED 100
[2016-04-20 15:58] LABS: ANISOCYTOSIS SLIGHT; TOXIC VACUOLATION PRESENT
[2016-04-21] MEDS ORDERED: ACETAMINOPHEN 325 MG TABLET PO ONE (06:37)
[2016-04-21] MEDS ORDERED: NORMAL SALINE 1000 ML 1,000 ML IV ONE (06:37)
[2016-04-21] MEDS ORDERED: PROMETHAZINE HCL INJ 25 MG/1 ML VIAL IM ONE (08:27)
--- NOTE | 2016-04-21 08:27 | ER Document Report ---
Doctor's Note Notes: 04/21/16 08:26 I did reassess the patient. She denies any complaints other than some continued pain and nausea. I will give her a dose of Phenergan. Her vital signs remain unchanged. Blood pressure is 103/69. Heart rate is normal at this time. She did have low-grade fever throughout the night we did give her Tylenol. We are still awaiting transfer to [facility]. I have ordered her Rocephin every 12 hours. We will continue to closely monitor her until she is transferred. I will check the patient out to the morning your physician, Dr. Carter. Dictation of this chart was performed using voice recognition software; therefore, there may be some unintended grammatical errors.
[2016-04-21] MEDS: CEFTRIAXONE INJ 1000 MG VIAL IV SCH (09:09)
[2016-04-21 16:22] LABS: ALANINE AMINOTRANSFERASE 22 U/L (9-52); ALBUMIN 2.6 g/dL (3.5-5.0); ALKALINE PHOSPHATASE 73 U/L (38-126); ANION GAP 9 (5-19); ASPARTATE AMINO TRANSFERASE 21 U/L (14-36); BILIRUBIN,TOTAL 0.6 mg/dL (0.2-1.3); BLOOD UREA NITROGEN 8 mg/dL (7-20); CARBON DIOXIDE 22 mmol/L (22-30); CHLORIDE 108 mmol/L (98-107); GLUCOSE 105 mg/dL (75-110); POTASSIUM 3.3 mmol/L (3.6-5.0); SODIUM 138.7 mmol/L (137-145); TOTAL PROTEIN 5.6 g/dL (6.3-8.2)
[2016-04-21] MEDS ORDERED: CEFTRIAXONE 1 GM/D5W RTU 1 GM/50 ML RTUPB IV ONE (22:05)
[2016-04-21] MEDS ORDERED: POTASSIUM CHLORIDE 20 MEQ/15 ML UDCUP PO ONE (22:07)
[2016-04-21] MEDS: MORPHINE SULFATE 10 MG/ML INJ IV PRN (22:21)
[2016-04-21] MEDS: ONDANSETRON HCL INJ/PF 4 MG/2 ML SDV IV PRN (22:21)
--- NOTE | 2016-04-22 00:13 | ER Document Report ---
Doctor's Note Notes: 04/22/16 00:11 I have seen and examined patient. This is a 46-year-old female with a history of nephrostomy tube that presented with fever and flank pain and was diagnosed with sepsis with UTI. Patient states she normally has a low blood pressure. She is requesting pain medicine at this time. Her blood pressure has been 99/ 50 and she states that this is normally baseline for her. Patient is maintaining her airway, her abdomen is soft and nontender. She is receiving IV antibiotics and IV fluids. I will prescribe some pain medicine. [facility] 04/22/16 00:12
[2016-04-22] MEDS: MORPHINE SULFATE 10 MG/ML INJ IV PRN ×4 (02:56→19:50)
[2016-04-22] MEDS: CEFTRIAXONE INJ 1000 MG VIAL IV SCH ×3 (05:26→23:50)
--- NOTE | 2016-04-22 07:02 | ER Document Report ---
Doctor's Note Notes: 04/22/16 07:01 I did reevaluate the patient. She is to fill improved. Blood pressure remains systolically in the 90s and low 100s. This is her baseline. She has no other complaints this time other than her continued intermittent pain. She does not appear to be in any distress. She's not tachycardic. She's been afebrile. We are continuing to wait for placement at [facility]. Dictation of this chart was performed using voice recognition software; therefore, there may be some unintended grammatical errors.
[2016-04-22] MEDS: ONDANSETRON HCL INJ/PF 4 MG/2 ML SDV IV PRN (23:50)
[2016-04-23] MEDS: CEFTRIAXONE INJ 1000 MG VIAL IV SCH (00:40)
[2016-04-23] MEDS ORDERED: MORPHINE SULFATE 10 MG/ML INJ IV PRN (00:48)
[2016-04-23 01:25] LABS: APPEARANCE,URINE CLOUDY; BILIRUBIN,URINE NEGATIVE (NEGATIVE); GLUCOSE, URINE NEGATIVE (NEGATIVE); KETONES,URINE NEGATIVE (NEGATIVE); LEUKOCYTE ESTERASE,URINE MODERATE (NEGATIVE); NITRITE,URINE NEGATIVE (NEGATIVE); PROTEIN,URINE NEGATIVE (NEGATIVE)
[2016-04-23 01:32] LABS: ABSOLUTE EOSINOPHILS # (AUTO) 0.1 10^3/uL (0.0-0.6); ABSOLUTE LYMPHOCYTES (AUTO) 1.7 10^3/uL (0.5-4.7); ABSOLUTE MONOCYTES (AUTO) 0.5 10^3/uL (0.1-1.4); ABSOLUTE NEUT (AUTO) 4.3 10^3/uL (1.7-8.2); BASOPHILS % (AUTO) 0.4 % (0-2); EOSINOPHILS % (AUTO) 0.8 % (0-6); HEMATOCRIT 26.9 % (36.0-47.0); LYMPHOCYTES % (AUTO) 25.7 % (13-45); MEAN CORPUSCULAR HEMOGLOBIN 29.1 pg (27.0-33.4); MEAN CORPUSCULAR HGB CONC 34.5 g/dL (32.0-36.0); MEAN CORPUSCULAR VOLUME 84 fl (80-97); MONOCYTES % (AUTO) 7.5 % (3-13); RED BLOOD COUNT 3.18 10^6/uL (3.72-5.28); RED CELL DISTRIBUTION WIDTH 14.1 % (11.5-14.0); SEGMENTED NEUTROPHILS % (AUTO) 65.6 % (42-78); WHITE BLOOD COUNT 6.5 10^3/uL (4.0-10.5)
[2016-04-23 01:35] LABS: HEMOGLOBIN 9.3 g/dL (12.0-15.5)
[2016-04-23 01:37] LABS: ANION GAP 10 (5-19); BLOOD UREA NITROGEN 6 mg/dL (7-20); CALCIUM 7.8 mg/dL (8.4-10.2); CARBON DIOXIDE 22 mmol/L (22-30); CHLORIDE 106 mmol/L (98-107); CREATININE RESULT 0.55 mg/dL (0.52-1.25); GLUCOSE 117 mg/dL (75-110); POTASSIUM 3.5 mmol/L (3.6-5.0)
--- NOTE | 2016-04-23 01:56 | ER Document Report ---
Doctor's Note Notes: 04/23/16 01:55 I did reevaluate the patient. She continues to feel well and says that she is doing well. She has been up and walking around without difficulty. She says that she gets up and walks around as often as she can. At this time I do not think she needs DVT prophylaxis because she continues to get up and ambulatory without difficulty. Her repeat CBC shows that her leukocytosis resolved. She still has some sinus infection in her urine but her insight Estrace is decreasing and she no longer has nitrites. She's had no fevers. Her blood pressures remained systolically in the 90s which is her baseline. In the morning I will recheck her. If she continues to feel well I may call her urologist and discuss the case with them and see if they're okay with us discharging her home with close follow-up. Dictation of this chart was performed using voice recognition software; therefore, there may be some unintended grammatical errors.
[2016-04-23 04:54] VITALS: BP 94/60
[2016-04-23] MEDS ORDERED: NORMAL SALINE 10 ML SDV (AFTER EACH USE) IV PRN (05:47)
[2016-04-23] MEDS ORDERED: NORMAL SALINE 10 ML SDV (SCHEDULED) IV SCH (10:00)
[2016-04-23] MEDS ORDERED: CEFTRIAXONE INJ 1000 MG VIAL IV SCH (10:00)
== END 2016-04-23 05:33 | disposition home or self-care (01) ==
LOC: ER 12:44
DX: N39.0 Urinary tract infection, site not specified (principal); R65.10 Systemic inflammatory response syndrome (SIRS) of non-infectious origin without acute organ dysfunction; G89.4 Chronic pain syndrome; R53.1 Weakness; R68.83 Chills (without fever); R11.0 Nausea; F17.210 Nicotine dependence, cigarettes, uncomplicated; Z87.442 Personal history of urinary calculi; Z86.19 Personal history of other infectious and parasitic diseases; Z88.6 Allergy status to analgesic agent
CPT/HCPCS: 96376; 99285; 96372; 96361; 96375; 96365; 96366; 36415; 87086; 85025; 87088; 80048; 80053; 81001; 80307; 83605; 74177; J3490 ×2; J2270 ×2; J2550; J0696 ×3; J2405; J7030 ×2